=== PATIENT | male | born 1950 | race Caucasian/White ===

== ENCOUNTER 2021-10-24 08:57 | Outpatient (REF) | payer MEDICARE, SELFPAY ==
--- NOTE | ~2021-10-24 | XR_ITS ---
EXAMINATION: BILATERAL HIP CLINICAL INFORMATION: Pain in bilateral hip COMPARISON: None TECHNIQUE: 2 views each hip FINDINGS: Left hip: There is maintained left hip joint space. No bony erosive changes, loose bodies or soft tissue swelling seen. Right hip: The right hip joint space is maintained. No bony erosive changes, loose bodies or soft tissue swelling seen. XR/XR hip RT min 2V IMPRESSION: Unremarkable bilateral hip exam
--- NOTE | ~2021-10-24 | XR_ITS ---
EXAMINATION: BILATERAL HIP CLINICAL INFORMATION: Pain in bilateral hip COMPARISON: None TECHNIQUE: 2 views each hip FINDINGS: Left hip: There is maintained left hip joint space. No bony erosive changes, loose bodies or soft tissue swelling seen. Right hip: The right hip joint space is maintained. No bony erosive changes, loose bodies or soft tissue swelling seen. XR/XR hip LT min 2V IMPRESSION: Unremarkable bilateral hip exam
[2021-10-24 11:20] LABS: MANUAL DIFF FLAG NO
[2021-10-24 11:25] LABS: Basophils Percent Auto 0.4 % (0-2); Eosinophils Absolute Auto 0.2 X10*3/uL (0.0-0.4); Eosinophils Percent Auto 2.4 % (0-4); Hematocrit 46.7 % (42.0-52.0); Hemoglobin 16.1 g/dl (14.0-18.0); Imm Gran Abs Auto 0.03 X10*3/uL (0.00-0.03); Imm Gran Pct Auto 0.4 % (0.0-0.4); Lymphocytes Absolute Auto 1.5 X10*3/uL (1.2-4.9); Lymphocytes Percent Auto 19.2 % (20-40); Mean Corpuscular HGB Conc 34.5 g/dl (31.0-36.0); Mean Corpuscular Hemoglobin 29.4 pg (27.0-33.0); Mean Corpuscular Volume 85.2 fL (80.0-98.0); Mean Platelet Volume 9.7 fL (9.4-12.4); Monocytes Absolute Auto 0.6 X10*3/uL (0.1-1.2); Monocytes Percent Auto 8.2 % (2-11); Neutrophils Absolute Auto 5.2 x10*3/uL (2.0-8.3); Neutrophils Percent Auto 69.4 % (45-73); Platelet Count 207 X10*3/uL (160-400); Red Blood Count 5.48 X10*6/uL (4.60-5.80); Red Cell Distribution Width 12.8 % (11.0-16.0); White Blood Count 7.6 X10*3/uL (4.8-10.8)
[2021-10-24 11:32] LABS: Appearance Urine CLEAR; Color Urine YELLOW; Glucose Urine UA NEG (NEG); Leukocyte Esterase Urine NEG (NEG); Nitrite Urine NEG (NEG); PH 5.5 (5.0-8.0); Specific Gravity - Urine 1.015 (1.005-1.025); Urine Blood NEG (NEG); Urine Ketones NEG (NEG); Urine Protein NEG (NEG-TRACE)
[2021-10-24 11:37] LABS: Estimated Average Glucose 128 mg/dL; Hemoglobin A1c % 6.1 %
[2021-10-24 11:47] LABS: Alanine Aminotransferase 18 U/L (0-40); Albumin Level 4.5 g/dL (3.5-5.0); Alkaline Phosphatase 80 U/L (39-117); Anion Gap 14 (12-20); Aspartate Amino Transferase 17 U/L (5-37); Bilirubin Total 1.3 mg/dL (0.0-1.0); Blood Urea Nitrogen 15 mg/dL (9-16); Calcium 9.7 mg/dL (8.4-10.2); Carbon Dioxide 26 mmol/L (22-29); Chloride 102 mmol/L (96-108); Cholesterol 148 mg/dL; Estimated Glomerular Filt Rate > 60; Glucose Fasting 131 mg/dL (60-99); HDL Cholesterol 35 mg/dL; LDL Cholesterol Calculated 90 mg/dl; Potassium 4.7 mmol/L (3.3-5.1); Sodium 137 mmol/L (135-145); Total Protein 7.2 g/dL (6.5-8.0); Triglycerides 116 mg/dL
[2021-10-24 11:55] LABS: Prostate Specific Antigen Scr 0.62 ng/mL (<0.05-4.0); TSH reflex Free T4 1.71 uIU/mL (0.32-4.0)
[2021-10-24 12:47] LABS: Creatinine Urine 107.41 mg/dL; Microalbum/Creatinine Ratio Ur 33.5 ug/mg cr
== END 2021-10-24 08:58 | disposition home or self-care (01) ==
LOC: HO.HMGCX 08:57
PROVIDERS: PCP Nurse Practitioner Family; Visit Provider Nurse Practitioner Family
DX: I10 Essential (primary) hypertension (principal); E11.9 Type 2 diabetes mellitus without complications; M25.552 Pain in left hip; M25.551 Pain in right hip; Z12.5 Encounter for screening for malignant neoplasm of prostate
CPT/HCPCS: 36415; 73502; 80053; 80061; 81003; 82043; 83036; 84153; 84443; 85025

== ENCOUNTER → 2021-11-07 07:24 | Outpatient (REF) | payer MEDICARE, SELFPAY ==
--- NOTE | 2021-11-07 07:27 | CA_ITS ---
Transthoracic Echocardiogram Patient (Last, First, Middle): Marvel Hilton E Gender: Male Date of : 1950 Age: 70 Procedure Date: 11/07/2021 Procedure Type: Transthoracic Echocardiogram Location: OP Height: 172.72 cm Weight: 90.72 kg BSA: 2.04 m2 Heart Rate: bpm BP: 155 / 72 mmHg Wireless Development Manager: MATHEW Referring MD: Brian Love [facility] Reinspector: Raymon Wall MD Symptoms: R01.1 - Cardiac murmur, unspecified Study Quality: Adequate ECG Rhythm: Sinus Conclusions: - 1. Normal LV systolic function with moderate LVH with impaired relaxation filling pattern 2. At least mildly dilated left atrium 3. Calcific aortic valve changes noted with early aortic stenosis 4. Mild mitral regurgitation 5. Normal RV systolic pressure 6. Mildly dilated ascending aorta at 3.8 cm 7. No pericardial effusion Findings Left Ventricle Normal left ventricular size and systolic function. There is moderately increased left ventricular wall thickness. The visually estimated ejection fraction is between 60-65%. Spectral Doppler is indicative of an impaired relaxation filling pattern. Right Ventricle Normal right ventricular cavity size and systolic function. Atria The left atrium is mildly dilated. There is lipomatous hypertrophy of the interatrial septum. There is no evidence of interatrial shunt. The right atrium is likely dilated. Aortic Valve There is mild calcification of the aortic valve. There is moderate thickening of the aortic valve. The peak aortic gradient is 17 mmHg.The mean gradient is 10 mmHg. The aortic valve area is 2.14 cm2. There is no aortic valve regurgitation. Mitral Valve There is mild anterior and posterior mitral leaflet thickening. There is mild mitral annular calcification. There is mild mitral valve regurgitation. There is no mitral valve stenosis. Pulmonic Valve The pulmonic valve was not well visualized. Tricuspid Valve Likely normal tricuspid valve structure and function. There is trace tricuspid valve regurgitation. The right ventricular systolic pressure is normal. The right ventricular systolic pressure is 28 mmHg. Normal right atrial pressure. There is no evidence of pulmonary hypertension. Great Vessels The pulmonary artery was not well visualized. There is mild dilatation of the ascending aorta measuring 3.80 cm. Venous The inferior vena cava is normal in size and collapses greater than 50% with inspiration. Pericardium/Pleural There is no evidence of pericardial effusion. Prior Study Comparison No prior study available for comparison. Measurements 2D Linear Measurements IVSd: 1.49 0.6-0.9/0.6-1.0 cm LVIDd: 4.46 3.9-5.3/4.2-5.9 cm LVIDd Index: 7.08 2.4-3.2/2.2-3.1 cm/m2 LVIDs: 2.86 2.0-3.6 cm LVPWd: 1.27 0.7-1.1 cm LA Diam: 4.20 2.7-3.8/3.0-4.0 cm LAIDs Index: 6.67 1.5-2.3 cm/m2 LV Mass: 299.16 67-162/88-224 g LV Mass Index: 474.85 43-95/49-115 g/m2 LVOT Diam: 2.20 3.0+(-)1.3 cm 2D Systolic Function EF 4C: 57.30 >55% EF 2C: 64.40 >55% EF BiP: 61.00 >55% Mitral Valve MV Pk E: 0.85 MV PK A: 1.09 MV Decel Time: 268.00 E/A: 0.80 E'Lateral: 8.59 E'Medial: 6.74 E/E' Med: 12.70 E/E' Lat: 9.90 PHT: 78.00 MVA PHT: 2.82 Decel [place]: 3.19 Aortic Valve AoV Pk Kannan: 2.05 AoV Mn Kannan: 1.44 AoV VTI: 0.50 AoV Pk Grad: 17.00 Aov Mn Grad: 10.00 MONICA Cont.VTI: 2.14 LVOT LVOT Pk Kannan: 1.12 LVOT Mn Kannan: 0.73 LVOT VTI: 0.28 LVOT Pk Grad: 5.00 LVOT Mn Grad: 2.00 LVOT Diam: 2.20 LVOT Area: 3.80 Diastolic Function MV Pk E: 0.85 MV Pk A: 1.09 E/A: 0.80 E'Medial: 6.74 E/E' Med: 12.70 E' Laterial: 8.59 E/E' Lat: 9.90 Right Ventricle TAPSE (mm): 22.80 TVS' Kannan: 16.90 Tricuspid Valve TR Pk Kannan: 2.50 TR Pk Grad: 25.00 RA Press: 3.00 RVSP: 28.00 Great Vessels Aorta Sinus of Valsalva: 3.62 2.0-3.[address] [place]: 2.75 1.7-3.4 cm Ao Asc: 3.80 2.1-3.4 cm Updated in Other Vendor System with Status of Final Raymon Wall MD electronically signed on 11/08/2021 3:57:33 PM with status of Final
== END ==
LOC: HO.CARD 07:24
PROVIDERS: PCP Nurse Practitioner Family; Visit Provider Nurse Practitioner Family
DX: R01.1 Cardiac murmur, unspecified (principal)
CPT/HCPCS: 93306

== ENCOUNTER 2022-04-20 07:09 | Outpatient (REF) | payer MEDICARE, SELFPAY ==
[2022-04-20 11:27] LABS: MANUAL DIFF FLAG NO
[2022-04-20 11:29] LABS: Appearance Urine Clear; Color Urine Yellow; Glucose Urine UA Negative (Negative); Leukocyte Esterase Urine Negative (Negative); Nitrite Urine Negative (Negative); PH 7.5 (5.0-9.0); Specific Gravity - Urine <= 1.005 (1.005-1.025); Urine Blood Negative (Negative); Urine Ketones Negative (Negative); Urine Protein Negative (Neg-Trace)
[2022-04-20 11:50] LABS: Basophils Percent Auto 0.6 % (0-2); Eosinophils Absolute Auto 0.2 X10*3/uL (0.0-0.4); Eosinophils Percent Auto 3.6 % (0-4); Hemoglobin 16.7 g/dl (14.0-18.0); Imm Gran Abs Auto 0.02 X10*3/uL (0.00-0.03); Imm Gran Pct Auto 0.3 % (0.0-0.4); Lymphocytes Absolute Auto 1.9 X10*3/uL (1.2-4.9); Lymphocytes Percent Auto 29.3 % (20-40); Mean Corpuscular HGB Conc 34.1 g/dl (31.0-36.0); Mean Corpuscular Hemoglobin 29.2 pg (27.0-33.0); Mean Corpuscular Volume 85.7 fL (80.0-98.0); Mean Platelet Volume 9.5 fL (9.4-12.4); Monocytes Absolute Auto 0.6 X10*3/uL (0.1-1.2); Monocytes Percent Auto 9.6 % (2-11); Neutrophils Absolute Auto 3.6 x10*3/uL (2.0-8.3); Neutrophils Percent Auto 56.6 % (45-73); Platelet Count 202 X10*3/uL (160-400); Red Blood Count 5.72 X10*6/uL (4.60-5.80); Red Cell Distribution Width 13.1 % (11.0-16.0); White Blood Count 6.4 X10*3/uL (4.8-10.8)
[2022-04-20 12:00] LABS: Estimated Average Glucose 137 mg/dL; Hemoglobin A1c % 6.4 %
[2022-04-20 12:19] LABS: Creatinine Urine 14.25 mg/dL; Microalbum/Creatinine Ratio Ur 154.3 ug/mg cr
[2022-04-20 12:19] LABS: Alanine Aminotransferase 24 U/L (0-40); Albumin Level 4.4 g/dL (3.5-5.0); Alkaline Phosphatase 63 U/L (39-117); Anion Gap 16 (12-20); Aspartate Amino Transferase 21 U/L (5-37); Bilirubin Total 1.2 mg/dL (0.0-1.0); Blood Urea Nitrogen 16 mg/dL (9-16); Calcium 9.9 mg/dL (8.4-10.2); Carbon Dioxide 29 mmol/L (22-29); Chloride 101 mmol/L (96-108); Cholesterol 161 mg/dL; Estimated Glomerular Filt Rate > 60; Glucose Fasting 131 mg/dL (60-99); HDL Cholesterol 37 mg/dL; LDL Cholesterol Calculated 98 mg/dl; Potassium 4.7 mmol/L (3.3-5.1); Sodium 141 mmol/L (135-145); Total Protein 7.2 g/dL (6.5-8.0); Triglycerides 132 mg/dL
[2022-04-20 12:21] LABS: TSH reflex Free T4 1.68 uIU/mL (0.32-4.0)
== END 2022-04-20 07:10 | disposition home or self-care (01) ==
LOC: HO.HMGCLDS 07:09
PROVIDERS: PCP Nurse Practitioner Family; Visit Provider Nurse Practitioner Family
DX: E11.9 Type 2 diabetes mellitus without complications (principal)
CPT/HCPCS: 36415; 80053; 80061; 81003; 82043; 83036; 84443; 85025

== ENCOUNTER → 2022-09-06 08:04 | Outpatient (BNVA) | payer MEDICARE, SELFPAY | PROVIDERS: PCP Nurse Practitioner Family; Visit Provider Nurse Practitioner | DX: Z01.818 Encounter for other preprocedural examination (principal); I34.0 Nonrheumatic mitral (valve) insufficiency; I35.0 Nonrheumatic aortic (valve) stenosis; Z80.0 Family history of malignant neoplasm of digestive organs | CPT/HCPCS: 99202 ==

== ENCOUNTER 2022-11-29 08:48 | Outpatient (AMB) | payer MEDICARE, SELFPAY ==
[2022-11-29 09:02] VITALS: BP 142/78; PULSE 73; O2SAT 96; BMI 29.8
--- NOTE | 2022-11-29 09:02 | A.OFFPC_ITS ---
Vital Signs 11/29/22 09:02 Height 5 ft 8 in Weight 196 lb 4 oz BMI 29.8 BP 142/78 H Blood Pressure Location Lt brachial Position Sitting Pulse 73 Pulse Source Pulse Oximeter Pulse Oximetry (%) 96 Oxygen Delivery Method Room Air Intake Visit Reasons: Annual PE/DM Allergies No Known Allergies Allergy (Verified 11/29/22 09:05) Medication List - Last Reconciled 11/29/22 by ALICIA Abel amlodipine-benazepril 10-20 mg 1 cap PO DAILY aspirin (Adult Low Dose Aspirin) 81 mg PO DAILY atorvastatin 40 mg PO DAILY 90 days hydrochlorothiazide 12.5 mg PO DAILY labetalol 300 mg PO BID metformin ER 500 mg PO BID 90 days peg 3350-electrolytes 236-22.74-6.74 -5.86 gram (Golytely) 240 mL PO Q10M 1 day Tobacco use date assessed: 11/29/22 Fall risk assessment: No Falls in past year Last assessed Fall Risk: 11/29/22 Dental Screening Dental Screen Date: 11/29/22 Did you have a dental visit in the last 12 months?: No Did you have a dental problem in the last 6 months where you did not have access to dental care?: No Was dental information given to patient?: Patient has dentist HPI Annual PE/DM HPI Details Pt is here for a PE. Will order labs. Pt is seeing GI for his colon screen. Due for PSA, will order. Denies dribbling with urination, weak stream, and nocturia. No family hx of prostate cancer. Pt is a diabetic, on an CHAITANYA and a statin. A1C in office today is 6.2, microalbumin is up to date. Denies polyuria, polydipsia, and neuropathy. Pt denies any signs and symptoms of hypoglycemia and does know how to correct it. Eye exam is up to date. HTN: Blood pressure is elevated today, managed with amlodipine-benazepril 10-20mg, hydrochlorothiazide 12.5mg, and labetalol 300mg bid. Will increase hydrochlorothiazide from 12.5mg to 25mg. Denies chest pain, shortness of breath, headache, dizziness, and blurred vision. [facility] Medical History Aortic stenosis Mild mitral regurgitation Social History Housing: House Patient Tobacco Use Status: Former Tobacco user Quit Date: quit 25 years ago e-Cigarette/Vaping Use: Never Used Second Hand Smoke Exposure: No service: No Current occupational status: retired Cognitive needs: No Hearing needs: No Vision needs: No Questionnaire Thrive Questionnaire Date Thrive assessed: 07/25/22 MARYA-7 AMB Questionnaire MARYA-7 Date MARYA - 7 assessed: 07/25/22 Source: Developed by Drs. Morgan Anderson, Dedra Zelaya, Winston Aceves and colleagues, with an educational franck from [employer]. Review of Systems Const Denies chills and Denies fever(s) Eyes Denies blurry vision ENT Denies vertigo, Denies dizziness and Denies sore throat Card Denies chest pain at rest, Denies chest pain with activity, Denies diaphoresis, Denies dyspnea and Denies dyspnea on exertion Resp Denies cough, Denies dyspnea, Denies dyspnea on exertion and Denies wheezing GI Denies abdominal pain, Denies melena, Denies hematochezia, Denies constipation, Denies diarrhea and Denies loose stools Denies hematuria Musc Denies numbness and Denies tingling Skin/Breast Denies lesions Neuro Denies vertigo, Denies dizziness, Denies numbness and Denies tingling Psych Denies anxiety, Denies depression, Denies homicidal ideation, Denies suicidal ideation and Denies other (substance abuse) Aller/Immun Denies wheezing Physical exam (Primary Care) Vital Signs: Last Vital Signs Pulse 73 11/29/22 09:02 BP 142/78 H 11/29/22 09:02 Pulse Ox 96 11/29/22 09:02 Oxygen Delivery Method Room Air 11/29/22 09:02 BMI result Body Mass Index 29.8 Tobacco/Smoking Status: Tobacco use Status Tobacco use date assessed 11/29/22 11/29/22 09:07 Patient Tobacco Use Status Former Tobacco user 11/29/22 09:04 e-Cigarette/Vaping Use Never Used 11/29/22 09:04 Thrive Assessment: Date of Thrive Assessment Date Thrive assessed 07/25/22 11/29/22 09:04 Const General: cooperative Nutritional Appearance: well nourished Orientation/consciousness: patient oriented x3 HENMT Head: Yes normal to inspection, Yes normocephalic and Yes atraumatic Ears: TM's normal bilaterally Eyes General: appearance normal, both eyes and all related structures Alignment and Position: alignment normal and position normal Neck Neck: Yes normal visual inspection and Yes no lymphadenopathy Thyroid: Thyroid normal Resp Effort & Inspection: normal respiratory effort Auscultation: clear to auscultation bilaterally Cardio Rate: regular rate Rhythm: regular rhythm Heart sounds: S1 normal heart sound present, S2 normal heart sound present and Murmur heart sound present (aortic region) systolic GI Palpation (GI): Soft to palpation and nontender Auscultation: normal bowel sounds Male General Exam: Yes normal external exam Penis: normal penis Scrotum: scrotum normal, testes descended bilaterally and no inguinal hernias Testes: no testicular mass Skin Rashes: no rashes Neuro General: patient oriented x3, moves all extremities, no focal motor deficits and deep tendon reflexes 2+ bilaterally Romberg Test: Negative Extrem Other: bilat feet: + sensation with use of monofilament, small burn (healing erythema) to plantar aspect right mid foot, healing well, no signs of infection Psych Appearance: grossly normal Mental Status: mental status grossly normal Speech and movement: Normal speech and movement present Affect: normal affect Attitude: cooperative Thought process: Normal thought process present Thought content: Normal thought content present Insight: Good insight present (Psych) Judgement: Good judgement present (Psych) Results AMB Hemoglobin A1c AMB Hemoglobin A1c 6.2 % Last Edit by Jennifer Verma CMA on 11/29/22 09: 23 Results Reviewed Results Reviewed: Laboratory Last Values Hgb A1c (Clinic) 6.2 % (4.0-6.0) H 11/29/22 09:13 Assessment and Plan Assessment & Plan (1) Diabetes: Code(s): E11.9 - Type 2 diabetes mellitus without complications Plan: Labs ordered (2) Screening PSA (prostate specific antigen): Code(s): Z12.5 - Encounter for screening for malignant neoplasm of prostate Plan: PSA ordered (3) Aortic stenosis: Code(s): I35.0 - Nonrheumatic aortic (valve) stenosis Plan: repeat echo for comparison from last year's echo (4) Systolic murmur: Code(s): R01.1 - Cardiac murmur, unspecified Plan: Echo ordered (5) HTN (hypertension): Code(s): I10 - Essential (primary) hypertension Plan: Increasing hctz to 25mg Plan The patient agreed to the use of a medical technologist microbiology for this encounter. Scribed for VERENA Robert- by Kim Mehta medical technologist microbiology, on 11/29/2022 at 09:25 EST. Orders: Orders Comprehensive [place]. Panel Fast Today E11.9 - Type 2 diabetes mellitus without complications Lipid Panel Today E11.9 - Type 2 diabetes mellitus without complications TSH reflex Free T4 Today E11.9 - Type 2 diabetes mellitus without complications Microalbumin, Random (w Creat) Today E11.9 - Type 2 diabetes mellitus without complications Complete Blood Count Auto Diff Today E11.9 - Type 2 diabetes mellitus without complications UA CC w/rflx Micro + Cult Today E11.9 - Type 2 diabetes mellitus without complications Prostate Specific Antigen Scr Today Z12.5 - Encounter for screening for malignant neoplasm of prostate CA echo transthoracic complete Today I35.0 - Nonrheumatic aortic (valve) stenosis AMB Hemoglobin A1c Today E11.9 - Type 2 diabetes mellitus without complications Medications: Changed From hydrochlorothiazide 12.5 mg PO DAILY 90 tabs 1RF To hydrochlorothiazide 25 mg PO DAILY 90 tabs 1RF Coding Level of Care Code Est Pt Prev Care >65y(03327) Diagnoses Diabetes E11.9 Screening PSA (prostate specific antigen) Z12.5 Aortic stenosis I35.0 Systolic murmur R01.1 HTN (hypertension) I10
== END 2022-11-29 09:49 | disposition home or self-care (01) ==
PROVIDERS: Visit Provider Nurse Practitioner Family
DX: Z00.00 Encounter for general adult medical examination without abnormal findings (principal); E11.9 Type 2 diabetes mellitus without complications; I10 Essential (primary) hypertension; I35.0 Nonrheumatic aortic (valve) stenosis; R01.1 Cardiac murmur, unspecified
CPT/HCPCS: 83036; 99397

== ENCOUNTER → 2022-12-27 07:52 | Outpatient (REF) | payer MEDICARE, SELFPAY ==
--- NOTE | 2022-12-27 07:54 | CA_ITS ---
Transthoracic Echocardiogram Patient (Last, First, Middle): Marvel Hilton E Gender: Male Date of : 1950 Age: 72 Procedure Date: 12/27/2022 Procedure Type: Transthoracic Echocardiogram Location: OP Height: 175.26 cm Weight: 88.45 kg BSA: 2.04 m2 Heart Rate: 57 bpm BP: 110 / 70 mmHg Electrical Machinist: NIDA/PEREZ Referring MD: Brian Love [facility] Symptoms: I35.0 - Nonrheumatic aortic (valve) stenosis Study Quality: Adequate ECG Rhythm: Sinus with extra beats Conclusions: - The left ventricular systolic function is normal. The calculated ejection fraction is 57% by biplane method. - The basal inferior and basal inferolateral segments are hypokinetic. - There is mild aortic valve stenosis. - There is mild mitral annular calcification. Findings Left Ventricle Normal left ventricular cavity size. There is mildly increased left ventricular wall thickness. The left ventricular systolic function is normal. The calculated ejection fraction is 57% by biplane method. There is no evidence of regional wall motion abnormalities. Evidence suggests grade I (mild) diastolic dysfunction. Wall Motion Rest Echo Findings The basal inferior and basal inferolateral segments are hypokinetic. Atria Both atria are normal in size. Aortic Valve There is moderate calcification of the aortic valve. There is mild aortic valve stenosis. There is no aortic valve regurgitation. Mitral Valve There is mild mitral annular calcification. There is no mitral valve regurgitation. There is no mitral valve stenosis. Pulmonic Valve The pulmonic valve is likely normal. Tricuspid Valve Normal tricuspid valve structure. There is trace tricuspid valve regurgitation. There is no evidence of pulmonary hypertension. Great Vessels The asc aorta is normal in size. Venous The inferior vena cava is normal in size and collapses greater than 50% with inspiration. Pericardium/Pleural There is no evidence of pericardial effusion. Prior Study Comparison Changes noted compared to prior study dated: 11/07/2021. see comment on wall motion. Measurements 2D Linear Measurements IVSd: 1.30 0.6-0.9/0.6-1.0 cm LVIDd: 4.15 3.9-5.3/4.2-5.9 cm LVIDd Index: 2.03 2.4-3.2/2.2-3.1 cm/m2 LVIDs: 2.98 2.0-3.6 cm LVPWd: 1.21 0.7-1.1 cm LA Diam: 4.40 2.7-3.8/3.0-4.0 cm LAIDs Index: 2.16 1.5-2.3 cm/m2 LV Mass: 232.89 67-162/88-224 g LV Mass Index: 114.16 43-95/49-115 g/m2 LVOT Diam: 2.00 3.0+(-)1.3 cm 2D Systolic Function EF 4C: 57.60 >55% EF 2C: 56.50 >55% EF BiP: 57.30 >55% Mitral Valve MV Pk E: 0.61 MV PK A: 1.14 MV Decel Time: 359.00 E/A: 0.50 E'Lateral: 5.22 E'Medial: 4.03 E/E' Med: 15.10 E/E' Lat: 11.60 PHT: 105.00 MVA PHT: 2.10 Decel Stewart: 1.69 Aortic Valve AoV Pk Kannan: 2.06 AoV Mn Kannan: 1.34 AoV VTI: 0.45 AoV Pk Grad: 17.00 Aov Mn Grad: 9.00 MONICA Cont.VTI: 1.64 LVOT LVOT Pk Kannan: 1.07 LVOT Mn Kannan: 0.71 LVOT VTI: 0.24 LVOT Pk Grad: 5.00 LVOT Mn Grad: 2.00 LVOT Diam: 2.00 LVOT Area: 3.14 Diastolic Function MV Pk E: 0.61 MV Pk A: 1.14 E/A: 0.50 E'Medial: 4.03 E/E' Med: 15.10 E' Laterial: 5.22 E/E' Lat: 11.60 Right Ventricle TAPSE (mm): 25.20 TVS' Kannan: 16.80 Tricuspid Valve TR Pk Kannan: 1.96 TR Pk Grad: 15.00 RA Press: 3.00 RVSP: 18.00 Great Vessels Aorta Sinus of Valsalva: 3.90 2.0-3.5 cm Ao Asc: 3.50 2.1-3.4 cm Pulmonary Valve PV Pk Kannan: 1.09 Peak PV Grad: 5.00 Updated in Other Vendor System with Status of Final Avtar Marquez MD electronically signed on 12/27/2022 11:47:11 AM with status of Final
== END ==
LOC: HO.CARD 07:52
PROVIDERS: PCP Nurse Practitioner Family; Visit Provider Nurse Practitioner Family
DX: I35.0 Nonrheumatic aortic (valve) stenosis (principal)
CPT/HCPCS: 93306

== ENCOUNTER → 2022-12-27 07:54 | Outpatient (BNV) | payer MEDICARE, SELFPAY | PROVIDERS: PCP Nurse Practitioner Family; Visit Provider Internal Medicine | DX: I35.0 Nonrheumatic aortic (valve) stenosis (principal) | CPT/HCPCS: 93306 ==

== ENCOUNTER 2023-01-31 06:27 | Outpatient (REF) | payer MEDICARE, SELFPAY ==
[2023-01-31 11:46] LABS: MANUAL DIFF FLAG NO
[2023-01-31 11:50] LABS: Basophils Absolute Auto 0.1 X10*3/uL (0.0-0.2); Basophils Percent Auto 0.7 % (0-2); Eosinophils Absolute Auto 0.2 X10*3/uL (0.0-0.4); Eosinophils Percent Auto 3.4 % (0-4); Hematocrit 42.7 % (42.0-52.0); Hemoglobin 15.1 g/dl (14.0-18.0); Imm Gran Abs Auto 0.03 X10*3/uL (0.00-0.03); Imm Gran Pct Auto 0.4 % (0.0-0.4); Lymphocytes Absolute Auto 1.8 X10*3/uL (1.2-4.9); Lymphocytes Percent Auto 26.4 % (20-40); Mean Corpuscular HGB Conc 35.4 g/dl (31.0-36.0); Mean Corpuscular Volume 84.7 fL (80.0-98.0); Monocytes Absolute Auto 0.7 X10*3/uL (0.1-1.2); Monocytes Percent Auto 10.1 % (2-11); Platelet Count 237 X10*3/uL (160-400); Red Blood Count 5.04 X10*6/uL (4.60-5.80); Red Cell Distribution Width 12.9 % (11.0-16.0); White Blood Count 6.7 X10*3/uL (4.8-10.8)
[2023-01-31 11:54] LABS: Appearance Urine Clear; Color Urine Yellow; Glucose Urine UA Negative (Negative); Leukocyte Esterase Urine Negative (Negative); Nitrite Urine Negative (Negative); Urine Blood Negative (Negative); Urine Ketones Negative (Negative); Urine Protein Negative (Neg-Trace)
[2023-01-31 12:00] LABS: Estimated Average Glucose 134 mg/dL; Hemoglobin A1c % 6.3 % (<6.0)
[2023-01-31 12:08] LABS: Alanine Aminotransferase 16 U/L (0-40); Albumin Level 4.1 g/dL (3.5-5.0); Alkaline Phosphatase 75 U/L (39-117); Anion Gap 15 (12-20); Aspartate Amino Transferase 18 U/L (5-37); Bilirubin Total 0.9 mg/dL (0.0-1.0); Blood Urea Nitrogen 16 mg/dL (9-16); Calcium 9.9 mg/dL (8.4-10.2); Carbon Dioxide 27 mmol/L (22-29); Chloride 101 mmol/L (96-108); Cholesterol 142 mg/dL (<200); Estimated Glomerular Filt Rate > 60; Glucose Fasting 124 mg/dL (60-99); HDL Cholesterol 30 mg/dL (>40); LDL Cholesterol Calculated 87 mg/dL (<100); Potassium 3.5 mmol/L (3.3-5.1); Sodium 139 mmol/L (135-145); Total Protein 7.2 g/dL (6.5-8.0); Triglycerides 129 mg/dL (<150)
[2023-01-31 12:19] LABS: Creatinine Urine 43.37 mg/dL; Prostate Specific Antigen Scr 1.13 ng/mL (<0.05-4.0)
[2023-01-31 12:25] LABS: TSH reflex Free T4 1.65 uIU/mL (0.32-4.0)
== END 2023-01-31 06:28 | disposition home or self-care (01) ==
LOC: HO.HMGCLDS 06:27
PROVIDERS: PCP Nurse Practitioner Family; Visit Provider Nurse Practitioner Family
DX: E11.9 Type 2 diabetes mellitus without complications (principal); Z12.5 Encounter for screening for malignant neoplasm of prostate
CPT/HCPCS: 36415; 80053; 80061; 81003; 82043; 82570; 83036; 84153; 84443; 85025

== ENCOUNTER 2023-04-04 09:12 | Outpatient (AMB) | payer MEDICARE, SELFPAY ==
--- NOTE | 2023-04-04 09:17 | A.OFFPC_ITS ---
Vital Signs 04/04/23 09:20 Height 5 ft 8 in Weight 201 lb BMI 30.6 BP 132/70 Blood Pressure Location Rt brachial Position Sitting Pulse 55 Pulse Source Pulse Oximeter Pulse Oximetry (%) 97 Oxygen Delivery Method Room Air Intake Visit Reasons: 4 month fu Intake Note: Patient is here today to follow up on diabetes. Allergies No Known Allergies Allergy (Verified 04/04/23 09:21) Tobacco use date assessed: 11/29/22 HPI 4 month fu HPI Details Patient is here for follow-up for diabetes. Denies any polyuria, polydipsia, neuropathy. He is currently on an CHAITANYA and is currently on a statin. He understands the signs and symptoms of hypoglycemia and how to correct it. Eye exam is up-to-date (according to pt). Microalbumin is up today as well. Pt reports checking his sugars intermittently, trending around 120-140. Pt refuses ALL VACCINATIONS. His last A1c was 6.3. [facility] Medical History Aortic stenosis Mild mitral regurgitation Social History Housing: House Patient Tobacco Use Status: Former Tobacco user Quit Date: quit 25 years ago e-Cigarette/Vaping Use: Never Used Second Hand Smoke Exposure: No service: No Current occupational status: retired Cognitive needs: No Hearing needs: No Vision needs: No Questionnaire Thrive Questionnaire Date Thrive assessed: 07/25/22 MARYA-7 AMB Questionnaire MARYA-7 Date MARYA - 7 assessed: 07/25/22 Source: Developed by Drs. Morgan Anderson, Dedra Zelaya, Winston Aceves and colleagues, with an educational franck from [employer]. Physical exam (Primary Care) Tobacco/Smoking Status: Tobacco use Status Tobacco use date assessed 11/29/22 11/29/22 09:07 Patient Tobacco Use Status Former Tobacco user 11/29/22 09:04 e-Cigarette/Vaping Use Never Used 11/29/22 09:04 Thrive Assessment: Date of Thrive Assessment Date Thrive assessed 07/25/22 11/29/22 09:04 Const General: cooperative, healthy appearing, no acute distress and well developed Resp Effort & Inspection: normal respiratory effort Auscultation: clear to auscultation bilaterally Cardio Rate: regular rate Rhythm: regular rhythm Heart sounds: S1 normal heart sound present, S2 normal heart sound present and Murmur heart sound present systolic Extrem Other: feet intact, + sensation with use of monofilament Coding Level of Care Code Est Pt Level 3 (55382)
[2023-04-04 09:20] VITALS: BP 132/70; PULSE 55; O2SAT 97; BMI 30.6
== END 2023-04-04 09:46 | disposition home or self-care (01) ==
PROVIDERS: PCP Nurse Practitioner Family; Visit Provider Nurse Practitioner Family
DX: E11.9 Type 2 diabetes mellitus without complications (principal)
CPT/HCPCS: 99213

== ENCOUNTER 2023-04-15 14:15 | Outpatient (AMB) | payer MEDICARE, SELFPAY ==
[2023-04-15 14:49] VITALS: BP 130/62; PULSE 59; BMI 30.9
--- NOTE | 2023-04-15 14:49 | MHC.OFFVIS ---
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 He denies any history of coronary disease myocardial infarction or cardiomyopathy or in fact any other cardiac issues in the past. Has hypertension, dyslipidemia and remote history of smoking. He states within limits of activity does not have any symptoms like chest pain or shortness of breath. However, he also has some hip issues and hence not able to do too much. [facility] Medical History (Updated 04/15/23 @ 15:36 by Avtar Marquez MD) No vaccination-pt refuse Aortic stenosis Mild mitral regurgitation Family History (Updated 04/15/23 @ 15:03 by Avtar Marquez MD) Father Heart disease Social History Housing: House Patient Tobacco Use Status: Former Tobacco user Quit Date: quit 25 years ago e-Cigarette/Vaping Use: Never Used Second Hand Smoke Exposure: No service: No Current occupational status: retired Cognitive needs: No Hearing needs: No Vision needs: No Review of Systems ENT Reports dizziness Card Denies chest pain, Denies chest pain at rest, Denies chest pain with activity, Denies rapid heart rate, Denies pedal edema, Denies edema, Denies leg edema, Denies lightheadedness, Denies palpitations, Denies dyspnea, Denies dyspnea on exertion and Denies orthopnea Resp Denies cough, Denies dyspnea and Denies dyspnea on exertion GI Denies hematochezia and Denies change in stool character Musc Denies abnormal gait, Reports limited range of motion, Reports muscle cramps, Denies muscle weakness, Denies numbness, Denies radiating pain into limb, Denies stiffness and Denies tingling Neuro Denies abnormal gait, Reports dizziness, Denies numbness and Denies tingling Endo Denies palpitations Physical Exam Vital Signs: Last Vital Signs Pulse 59 04/15/23 14:49 BP 130/62 04/15/23 14:49 BMI result Body Mass Index 30.9 Const General: comfortable and no acute distress Orientation/consciousness: patient oriented x3 HEENT Other: Unremarkable Head: Yes normal to inspection Neck Neck: Yes normal visual inspection Chest Chest palpation & inspection: normal inspection of the chest Resp Auscultation: clear to auscultation bilaterally Cardio Palpation: normal PMI Heart sounds: S1 normal heart sound present, S2 normal heart sound present, no gallops, Murmur heart sound present systolic II/ and at the right sternal border and no rubs GI Palpation (GI): Soft to palpation Back/Spine/Pelvis Other: unremarkable Skin General skin exam: no rashes or lesions noted Neuro General: patient oriented x3 Extrem General: Yes normal to inspection Psych Mental Status: mental status grossly normal Office Procedures EKG Details: EKG with sinus bradycardia, 9/Min; premature supraventricular ectopy; anterolateral T inversions/downsloping ST. LVH versus ischemia. [id number], Complete Assessment & Plan Assessment & Plan (1) Abnormal EKG: Code(s): R94.31 - Abnormal electrocardiogram [ECG] [EKG] (2) Aortic stenosis: Code(s): I35.0 - Nonrheumatic aortic (valve) stenosis (3) HTN (hypertension): Code(s): I10 - Essential (primary) hypertension Plan EKG, as above shows lateral/anterolateral downsloping ST/T inversion. Could be from LVH or from ischemia. Echocardiogram with LVEF of 57%. Basal inferior/inferolateral hypokinesis. Mild aortic stenosis and mild mitral annular calcification. He does have risk factors including hypertension, dyslipidemia and diabetes. We will plan on pharmacological stress perfusion imaging study for further evaluation. He states he may not be able to exercise adequately due to pain. May hold beta-blockers before the test. Follow-up after testing. Orders: Orders NM cardiolite stress test Today R07.2 - Precordial pain CA lexiscan stress w kayli Today I20.9 - Angina pectoris, unspecified Coding Level of Care Code New Pt Level 4 (22294) Diagnoses Abnormal EKG R94.31 Aortic stenosis I35.0 HTN (hypertension) I10 CPT Codes EKG - CPT: 95961-[id number], Complete ([id number])
== END 2023-04-15 15:14 | disposition home or self-care (01) ==
PROVIDERS: PCP Nurse Practitioner Family; Visit Provider Internal Medicine
DX: I35.0 Nonrheumatic aortic (valve) stenosis (principal); I10 Essential (primary) hypertension; I47.10 Supraventricular tachycardia, unspecified; R94.31 Abnormal electrocardiogram [ECG] [EKG]
CPT/HCPCS: 93010; 99204

== ENCOUNTER → 2023-04-15 14:15 | Outpatient (BNVA) | payer MEDICARE, SELFPAY | PROVIDERS: PCP Nurse Practitioner Family; Visit Provider Internal Medicine | DX: R94.31 Abnormal electrocardiogram [ECG] [EKG] (principal); I35.0 Nonrheumatic aortic (valve) stenosis; I10 Essential (primary) hypertension | CPT/HCPCS: 93005; 99202 ==

== ENCOUNTER → 2023-05-28 07:41 | Outpatient (REF) | payer MEDICARE, SELFPAY ==
--- NOTE | ~2023-05-28 | NM_ITS ---
EXERCISE MYOCARDIAL PERFUSION STUDY INDICATION: Coronary disease, assess for ischemia TECHNIQUE: The patient was brought in for an exercise perfusion study on 05/28/2023. Patient performed exercise as per Jose J protocol and was injected 30 mCi of sestamibi once target heart rate was achieved. Images were obtained using the SPECT gamma camera interlaced with the gating device. Images were obtained in supine position. Resting perfusion study was performed on 05/30/2023. Patient was administered 30 mCi of sestamibi intravenously at rest. Images were then obtained in supine position. Images were processed with the software and compared side to side in short axis, horizontal long axis and vertical long axis views. Total DLP 91mGy-cm. FINDINGS: Raw images were reviewed. The stress perfusion study showed diminished tracer uptake in the basal part of inferolateral wall. Some improvement with CT attenuation correction. The gated study shows normal LV systolic function with calculated LVEF of 58%. LV cavity is normal in size. The gated study shows reduced contractility in the basal inferior/inferolateral wall. Resting study shows diminished tracer uptake in the basal part of inferolateral wall. Gating at rest reveals ejection fraction at 62%; basal inferior/inferolateral hypokinesis. The findings are consistent with fixed perfusion defect in the basal part of inferolateral wall.. NM/NM cardiolite stress test IMPRESSION: 1. 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 No clear ischemia. 2. Gated LVEF is 58% during stress and 52% during rest. 3. Transient ischemic dilatation not present. EKG component of the test reported separately.
--- NOTE | 2023-05-28 07:44 | CA_ITS ---
Acquisition Time: 2023-05-28 08:24:06 Total Exercise Time: 00:05:00 Test Indications: I20.9 - Angina pectoris, unspec Medications: Protocol: PRAFUL Max HR: 141 BPM 95% of Pred: 148 BPM Max BP: 202/046 mmHG Max Work Load: 5.9 METS Exercise stress test exercise 5 min of Praful protocol (stage 2 reduced speed due to hip discomfort) achieving 95% MPHR, without anginal symptoms, with isolated PVCs and ventricular cuplet with max BP 202/46,with baseline downsloping in leads 1, 2, 3,aVF and horizontal ST depressions V4-V6 greater than 1 mm. Nuclear images pending. Test reviewed with Dr. Wall . PT upon arrival BP was 170/62 rate 63 bpm SR with occational PVCs and 146/48 rate 68 bpm. SR with occational PVCs . Test restarted due to being started in Lexiscan and he wanted to try exercise first. Referred By: Avtar Marquez Overread By: Bebe Interiano
== END ==
LOC: HO.CARD 07:41
PROVIDERS: Visit Provider Internal Medicine
DX: R07.2 Precordial pain (principal); I20.9 Angina pectoris, unspecified
CPT/HCPCS: 78452; 93017; A9500

== ENCOUNTER → 2023-05-28 07:44 | Outpatient (BNV) | payer MEDICARE, SELFPAY | PROVIDERS: Visit Provider Nurse Practitioner | DX: I20.9 Angina pectoris, unspecified (principal) | CPT/HCPCS: 78452; 93016; 93018 ==

== ENCOUNTER 2023-06-13 08:58 | Outpatient (AMB) | payer MEDICARE, SELFPAY ==
[2023-06-13 09:00] VITALS: BP 138/60; PULSE 54; BMI 30.8
--- NOTE | 2023-06-13 09:00 | MHC.OFFVIS ---
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 Recently seen in consultation regarding abnormal echocardiogram as that showed some wall motion abnormalities. He has history of hypertension, dyslipidemia and remote history of smoking. Overall, he feels fine. He really does not have any chest pain or in fact any clear-cut cardiac symptoms. He has completed a stress test. [facility] Medical History (Updated 04/15/23 @ 15:36 by Avtar Marquez MD) No vaccination-pt refuse Aortic stenosis Mild mitral regurgitation Surgical History (Updated 06/13/23 @ 09:03 by Diana Uribe) Hx of hand surgery Family History Father Heart disease Social History Housing: House Patient Tobacco Use Status: Former Tobacco user Quit Date: quit 25 years ago e-Cigarette/Vaping Use: Never Used Second Hand Smoke Exposure: No service: No Current occupational status: retired Cognitive needs: No Hearing needs: No Vision needs: No Review of Systems Const Denies weakness ENT Denies dizziness Card Denies chest pain, Denies chest pain with activity, Denies syncope, Denies rapid heart rate, Denies pedal edema, Denies edema, Denies leg edema, Denies lightheadedness, Denies palpitations, Denies dyspnea, Denies dyspnea on exertion and Denies orthopnea Resp Denies cough, Denies dyspnea and Denies dyspnea on exertion GI Denies hematochezia and Denies change in stool character Musc Denies abnormal gait, Denies muscle cramps, Denies muscle weakness, Denies numbness, Denies radiating pain into limb and Denies tingling Neuro Denies abnormal gait, Denies dizziness, Denies syncope, Denies numbness, Denies tingling and Denies weakness Endo Denies palpitations Physical Exam Vital Signs: Last Vital Signs Pulse 54 06/13/23 09:00 BP 138/60 06/13/23 09:00 BMI result Body Mass Index 30.8 Const General: comfortable and no acute distress Orientation/consciousness: patient oriented x3 HEENT Other: Unremarkable Head: Yes normal to inspection Neck Neck: Yes normal visual inspection Chest Chest palpation & inspection: normal inspection of the chest Resp Auscultation: clear to auscultation bilaterally Cardio Palpation: normal PMI Heart sounds: S1 normal heart sound present, S2 normal heart sound present, no gallops, no murmurs and no rubs GI Palpation (GI): Soft to palpation Back/Spine/Pelvis Other: unremarkable Skin General skin exam: no rashes or lesions noted Neuro General: patient oriented x3 Extrem General: Yes normal to inspection Psych Mental Status: mental status grossly normal Assessment & Plan Assessment & Plan (1) Abnormal EKG: Code(s): R94.31 - Abnormal electrocardiogram [ECG] [EKG] (2) Aortic stenosis: Code(s): I35.0 - Nonrheumatic aortic (valve) stenosis (3) HTN (hypertension): Code(s): I10 - Essential (primary) hypertension Plan EKG, shows lateral/anterolateral downsloping ST/T inversion. Could be from LVH or from ischemia. Echocardiogram with LVEF of 57%. Basal inferior/inferolateral hypokinesis. Mild aortic stenosis and mild mitral annular calcification. Myocardial perfusion imaging study shows prior infarct in the basal part of inferolateral wall but no clear ischemia. Overall, no clinical cardiac symptoms but abnormal cardiac testing as above. We discussed various options including just optimal medical therapy versus further workup. After long discussion about discussing options including coronary CT/cardiac catheterization, we decided on coronary CTA. That seems to be reasonable approach to determine coronary anatomy especially as he got no other symptoms. Will follow-up after the above. Orders: Orders CT Cardiac Coronary Angio Today I25.10 - Atherosclerotic heart disease of [place] coronary artery without angina pectoris Basic Metabolic Panel Today I25.10 - Atherosclerotic heart disease of [place] coronary artery without angina pectoris Coding Level of Care Code Est Pt Level 4 (44706) Diagnoses Abnormal EKG R94.31 Aortic stenosis I35.0 HTN (hypertension) I10
== END 2023-06-13 09:27 | disposition home or self-care (01) ==
PROVIDERS: PCP Nurse Practitioner Family; Visit Provider Internal Medicine
DX: R94.31 Abnormal electrocardiogram [ECG] [EKG] (principal); I35.0 Nonrheumatic aortic (valve) stenosis; I10 Essential (primary) hypertension
CPT/HCPCS: 99214

== ENCOUNTER → 2023-06-13 08:58 | Outpatient (BNVA) | payer MEDICARE, SELFPAY | PROVIDERS: PCP Nurse Practitioner Family; Visit Provider Internal Medicine | DX: R94.31 Abnormal electrocardiogram [ECG] [EKG] (principal); I35.0 Nonrheumatic aortic (valve) stenosis; I10 Essential (primary) hypertension | CPT/HCPCS: 99212 ==

== ENCOUNTER 2023-07-29 09:43 | Outpatient (AMB) | payer MEDICARE, SELFPAY ==
--- NOTE | 2023-07-29 10:25 | MHC.PC.OV ---
Vital Signs 07/29/23 10:27 07/29/23 10:46 Height 5 ft 8 in Weight 201 lb 4 oz BMI 30.6 BP 140/92 H 128/82 Blood Pressure Location Lt brachial Lt brachial Position Sitting Sitting Pulse 63 Pulse Source Pulse Oximeter Pulse Oximetry (%) 97 Oxygen Delivery Method Room Air Intake Visit Reasons: 4 month fu DM Intake Note: Patient here for diabetes f/u. pt states he has not been checking sugars at home very often. Allergies No Known Allergies Allergy (Verified 07/29/23 10:57) Medication List - Last Reconciled 07/29/23 by ALICIA Abel amlodipine-benazepril 10-20 mg 1 cap PO DAILY aspirin (Adult Low Dose Aspirin) 81 mg PO DAILY atorvastatin 40 mg PO DAILY 90 days hydrochlorothiazide 25 mg PO DAILY labetalol 300 mg PO BID metformin ER 500 mg PO BID 90 days Tobacco use date assessed: 07/29/23 Fall risk assessment: No Falls in past year Last assessed Fall Risk: 07/29/23 Dental Screening Dental Screen Date: 07/29/23 Did you have a dental visit in the last 12 months?: No Did you have a dental problem in the last 6 months where you did not have access to dental care?: No Was dental information given to patient?: Patient has dentist HPI 4 month fu DM HPI Details Pt is a diabetic, on an CHAITANYA and a statin. A1C in office today is 6.5. Microalbumin is up to date. Denies polyuria, polydipsia, and neuropathy. Pt denies any signs and symptoms of hypoglycemia and does know how to correct it. Pt will call to make his own appointment for an eye exam. HTN: Blood pressure is stable, managed with amlodipine-benazepril 10-20mg, hydrochlorothiazide 25mg, and labetalol 300mg bid. Pt follows up with cardiology. He will be going for his colon screen in the near future. pt refused all vacines [facility] Medical History No vaccination-pt refuse Aortic stenosis Mild mitral regurgitation Surgical History Hx of hand surgery Family History Father Heart disease Social History Housing: House Patient Tobacco Use Status: Former Tobacco user Quit Date: quit 25 years ago e-Cigarette/Vaping Use: Never Used Second Hand Smoke Exposure: No service: No Current occupational status: retired Cognitive needs: No Hearing needs: No Vision needs: No Questionnaire Thrive Questionnaire Date Thrive assessed: 07/25/22 AUDIT C Alcohol Use Questionnaire (AUDIT-C) 1. How often do you have a drink containing alcohol?: Never 3. How often do you have six or more drinks on one occasion?: Never Total Score: 0 Score Reviewed/Action Taken: No MARYA-7 AMB Questionnaire MARYA-7 Date MARYA - 7 assessed: 07/25/22 Source: Developed by Drs. Morgan Anderson, Dedra Zelaya, Winston Aceves and colleagues, with an educational franck from [employer]. Review of Systems Const Reports as per HPI Physical exam (Primary Care) Vital Signs: Last Vital Signs Pulse 63 07/29/23 10:27 BP 140/92 H 07/29/23 10:27 Pulse Ox 97 07/29/23 10:27 Oxygen Delivery Method Room Air 07/29/23 10:27 BMI result Body Mass Index 30.6 Tobacco/Smoking Status: Tobacco use Status Tobacco use date assessed 07/29/23 07/29/23 10:30 Patient Tobacco Use Status Former Tobacco user 07/29/23 10:27 e-Cigarette/Vaping Use Never Used 07/29/23 10:27 Thrive Assessment: Date of Thrive Assessment Date Thrive assessed 07/25/22 07/29/23 10:27 Const General: cooperative Orientation/consciousness: patient oriented x3 Resp Effort & Inspection: normal respiratory effort Auscultation: clear to auscultation bilaterally Cardio Rate: regular rate Rhythm: regular rhythm Heart sounds: S1 normal heart sound present, S2 normal heart sound present and Murmur heart sound present systolic Neuro General: patient oriented x3 Extrem Other: bilat feet: + sensation with use of monofilament, feet intact Right lower extremity: no edema Left lower extremity: no edema Psych Appearance: grossly normal Mental Status: mental status grossly normal Speech and movement: Normal speech and movement present Affect: normal affect Attitude: cooperative Thought process: Normal thought process present Thought content: Normal thought content present Insight: Good insight present (Psych) Judgement: Good judgement present (Psych) Results AMB Hemoglobin A1c AMB Hemoglobin A1c 6.5 % Last Edit by LOWELL Irwin on 07/29/23 10:44 Results Reviewed Results Reviewed: Laboratory Last Values Hgb A1c (Clinic) 6.5 % (4.0-6.0) H 07/29/23 10:44 Assessment and Plan Assessment & Plan (1) HTN (hypertension): Code(s): I10 - Essential (primary) hypertension Plan: Stable (2) Diabetes: Code(s): E11.9 - Type 2 diabetes mellitus without complications Plan: Labs ordered Plan The patient agreed to the use of a medical technical writer for this encounter. Scribed for ALICIA Robert by Kim Mehta medical technical writer, on 07/29/2023 at 10:50 EST. Orders: Orders AMB Hemoglobin A1c Today Z13.9 - Encounter for screening, unspecified TSH reflex Free T4 Today E11.9 - Type 2 diabetes mellitus without complications, I10 - Essential (primary) hypertension UA CC w/rflx Micro + Cult Today E11.9 - Type 2 diabetes mellitus without complications, I10 - Essential (primary) hypertension Lipid Panel Today E11.9 - Type 2 diabetes mellitus without complications, I10 - Essential (primary) hypertension Complete Blood Count Auto Diff Today E11.9 - Type 2 diabetes mellitus without complications, I10 - Essential (primary) hypertension Comprehensive [place]. Panel Fast Today E11.9 - Type 2 diabetes mellitus without complications, I10 - Essential (primary) hypertension Coding Level of Care Code Est Pt Level 3 (13944) Diagnoses HTN (hypertension) I10 Diabetes E11.9
[2023-07-29 10:27] VITALS: BP 140/92; PULSE 63; O2SAT 97; BMI 30.6
[2023-07-29 10:46] VITALS: BP 128/82
== END 2023-07-29 10:59 | disposition home or self-care (01) ==
PROVIDERS: PCP Nurse Practitioner Family; Visit Provider Nurse Practitioner Family
DX: I10 Essential (primary) hypertension (principal); E11.9 Type 2 diabetes mellitus without complications
CPT/HCPCS: 83036; 99213

== ENCOUNTER 2023-07-30 06:40 | Outpatient (REF) | payer MEDICARE, SELFPAY ==
[2023-07-30 10:22] LABS: MANUAL DIFF FLAG NO
[2023-07-30 10:40] LABS: Basophils Absolute Auto 0.1 X10*3/uL (0.0-0.2); Basophils Percent Auto 0.7 % (0-2); Eosinophils Absolute Auto 0.2 X10*3/uL (0.0-0.4); Eosinophils Percent Auto 3.4 % (0-4); Hematocrit 46.1 % (42.0-52.0); Hemoglobin 16.1 g/dl (14.0-18.0); Imm Gran Abs Auto 0.04 X10*3/uL (0.00-0.03); Imm Gran Pct Auto 0.6 % (0.0-0.4); Lymphocytes Absolute Auto 1.8 X10*3/uL (1.2-4.9); Lymphocytes Percent Auto 26.7 % (20-40); Mean Corpuscular HGB Conc 34.9 g/dl (31.0-36.0); Mean Corpuscular Hemoglobin 30.3 pg (27.0-33.0); Mean Corpuscular Volume 86.8 fL (80.0-98.0); Mean Platelet Volume 9.7 fL (9.4-12.4); Monocytes Absolute Auto 0.7 X10*3/uL (0.1-1.2); Monocytes Percent Auto 10.8 % (2-11); Neutrophils Absolute Auto 3.9 x10*3/uL (2.0-8.3); Neutrophils Percent Auto 57.8 % (45-73); Platelet Count 183 X10*3/uL (160-400); Red Blood Count 5.31 X10*6/uL (4.60-5.80); Red Cell Distribution Width 13.7 % (11.0-16.0); White Blood Count 6.8 X10*3/uL (4.8-10.8)
[2023-07-30 10:42] LABS: Appearance Urine Clear; Color Urine Yellow; Glucose Urine UA Negative (Negative); Leukocyte Esterase Urine Negative (Negative); Nitrite Urine Negative (Negative); Urine Blood Negative (Negative); Urine Ketones Negative (Negative); Urine Protein Negative (Neg-Trace)
[2023-07-30 11:56] LABS: Alanine Aminotransferase 21 U/L (0-40); Albumin Level 4.2 g/dL (3.5-5.0); Alkaline Phosphatase 55 U/L (39-117); Anion Gap 13 (12-20); Aspartate Amino Transferase 18 U/L (5-37); Bilirubin Total 0.7 mg/dL (0.0-1.0); Blood Urea Nitrogen 16 mg/dL (9-16); Calcium 9.7 mg/dL (8.4-10.2); Carbon Dioxide 29 mmol/L (22-29); Chloride 103 mmol/L (96-108); Cholesterol 133 mg/dL (<200); Estimated Glomerular Filt Rate > 60; Glucose Fasting 134 mg/dL (60-99); HDL Cholesterol 36 mg/dL (>40); LDL Cholesterol Calculated 79 mg/dL (<100); Potassium 3.9 mmol/L (3.3-5.1); Sodium 141 mmol/L (135-145); Triglycerides 91 mg/dL (<150)
[2023-07-30 12:14] LABS: TSH reflex Free T4 1.94 uIU/mL (0.32-4.0)
== END 2023-07-30 06:41 | disposition home or self-care (01) ==
LOC: HO.LAB 06:40
PROVIDERS: PCP Nurse Practitioner Family; Visit Provider Nurse Practitioner Family
DX: I10 Essential (primary) hypertension (principal); E11.9 Type 2 diabetes mellitus without complications
CPT/HCPCS: 36415; 80053; 80061; 81003; 84443; 85025

== ENCOUNTER 2023-09-04 06:28 | Outpatient (REF) | payer MEDICARE, SELFPAY ==
[2023-09-04 10:42] LABS: MANUAL DIFF FLAG NO
[2023-09-04 10:49] LABS: Basophils Percent Auto 0.5 % (0-2); Eosinophils Absolute Auto 0.2 X10*3/uL (0.0-0.4); Hematocrit 45.8 % (42.0-52.0); Hemoglobin 15.8 g/dl (14.0-18.0); Imm Gran Abs Auto 0.04 X10*3/uL (0.00-0.03); Imm Gran Pct Auto 0.5 % (0.0-0.4); Lymphocytes Absolute Auto 2.1 X10*3/uL (1.2-4.9); Lymphocytes Percent Auto 26.9 % (20-40); Mean Corpuscular HGB Conc 34.5 g/dl (31.0-36.0); Mean Corpuscular Hemoglobin 29.8 pg (27.0-33.0); Mean Corpuscular Volume 86.4 fL (80.0-98.0); Mean Platelet Volume 9.8 fL (9.4-12.4); Monocytes Absolute Auto 0.8 X10*3/uL (0.1-1.2); Monocytes Percent Auto 10.2 % (2-11); Neutrophils Absolute Auto 4.5 x10*3/uL (2.0-8.3); Neutrophils Percent Auto 58.9 % (45-73); Platelet Count 217 X10*3/uL (160-400); Red Cell Distribution Width 13.4 % (11.0-16.0); White Blood Count 7.6 X10*3/uL (4.8-10.8)
[2023-09-04 10:54] LABS: Prothrombin Time 11.6 SEC (11.1-13.3)
[2023-09-04 11:19] LABS: Anion Gap 12 (12-20); Blood Urea Nitrogen 14 mg/dL (9-16); Calcium 9.7 mg/dL (8.4-10.2); Carbon Dioxide 28 mmol/L (22-29); Chloride 104 mmol/L (96-108); Estimated Glomerular Filt Rate > 60; Glucose Random 113 mg/dL (60-115); Potassium 3.8 mmol/L (3.3-5.1); Sodium 140 mmol/L (135-145)
== END 2023-09-04 06:29 | disposition home or self-care (01) ==
LOC: HO.HMGCLDS 06:28
PROVIDERS: PCP Nurse Practitioner Family; Visit Provider Internal Medicine
DX: I10 Essential (primary) hypertension (principal); E11.9 Type 2 diabetes mellitus without complications; I25.10 Atherosclerotic heart disease of native coronary artery without angina pectoris; R93.1 Abnormal findings on diagnostic imaging of heart and coronary circulation; R94.31 Abnormal electrocardiogram [ECG] [EKG]
CPT/HCPCS: 36415; 80048; 85025; 85610

== ENCOUNTER → 2023-09-12 23:59 | Outpatient (BNV) | payer MEDICARE, SELFPAY | PROVIDERS: PCP Nurse Practitioner Family; Visit Provider Internal Medicine Cardiovascular Disease | DX: R93.1 Abnormal findings on diagnostic imaging of heart and coronary circulation (principal); I35.0 Nonrheumatic aortic (valve) stenosis | CPT/HCPCS: 93458; 99152 ==

== ENCOUNTER 2023-11-04 07:59 | Outpatient (AMB) | payer MEDICARE, SELFPAY ==
[2023-11-04 08:21] VITALS: BP 140/68; PULSE 74; BMI 29.8
--- NOTE | 2023-11-04 08:21 | MHC.OFFVIS ---
Vital Signs 11/04/23 08:21 Height 5 ft 8 in Weight 196 lb 3.382 oz BMI 29.8 BP 140/68 H Blood Pressure Location Lt brachial Position Sitting Pulse 74 Pulse Source Pulse Oximeter Intake Visit Reasons: overdue fu cardiac cath Allergies No Known Allergies Allergy (Verified 07/29/23 10:57) Medication List - Last Reconciled 11/04/23 by Avtar Marquez MD amlodipine-benazepril 10-20 mg 1 cap PO DAILY aspirin (Adult Low Dose Aspirin) 81 mg PO DAILY atorvastatin 40 mg PO DAILY 90 days hydrochlorothiazide 25 mg PO DAILY labetalol 300 mg PO BID metformin ER 500 mg PO BID 90 days HPI Comments Details: Marvel returns for follow-up. Originally seen in consultation regarding abnormal echocardiogram as that showed some wall motion abnormalities. He has history of hypertension, dyslipidemia and remote history of smoking. He underwent a comprehensive workup including diagnostic catheterization. Overall, he states he feels fine. No cardiac symptoms. [facility] Medical History No vaccination-pt refuse Aortic stenosis Mild mitral regurgitation Surgical History Hx of hand surgery Family History Father Heart disease Social History Housing: House Patient Tobacco Use Status: Former Tobacco user e-Cigarette/Vaping Use: Never Used Second Hand Smoke Exposure: No service: No Current occupational status: retired Cognitive needs: No Hearing needs: No Vision needs: No Review of Systems Const Denies weakness ENT Denies dizziness Card Denies chest pain, Denies chest pain with activity, Denies syncope, Denies rapid heart rate, Denies pedal edema, Denies edema, Denies leg edema, Denies lightheadedness, Denies palpitations, Denies dyspnea, Denies dyspnea on exertion and Denies orthopnea Resp Denies cough, Denies dyspnea and Denies dyspnea on exertion GI Denies hematochezia and Denies change in stool character Musc Denies abnormal gait, Denies muscle cramps, Denies muscle weakness, Denies numbness, Denies radiating pain into limb and Denies tingling Neuro Denies abnormal gait, Denies dizziness, Denies syncope, Denies numbness, Denies tingling and Denies weakness Endo Denies palpitations Physical Exam Vital Signs: Last Vital Signs Pulse 74 11/04/23 08:21 BP 140/68 H 11/04/23 08:21 BMI result Body Mass Index 29.8 Const General: comfortable and no acute distress Orientation/consciousness: patient oriented x3 HEENT Other: Unremarkable Head: Yes normal to inspection Neck Neck: Yes normal visual inspection Chest Chest palpation & inspection: normal inspection of the chest Resp Auscultation: clear to auscultation bilaterally Cardio Palpation: normal PMI Heart sounds: S1 normal heart sound present, S2 normal heart sound present, no gallops, Murmur heart sound present systolic II/ and at the right sternal border and no rubs GI Palpation (GI): Soft to palpation Back/Spine/Pelvis Other: unremarkable Skin General skin exam: no rashes or lesions noted Neuro General: patient oriented x3 Extrem General: Yes normal to inspection Psych Mental Status: mental status grossly normal Assessment & Plan Assessment & Plan (1) Atherosclerotic coronary vascular disease: Code(s): I25.10 - Atherosclerotic heart disease of [place] coronary artery without angina pectoris Category: Medical (2) Abnormal EKG: Code(s): R94.31 - Abnormal electrocardiogram [ECG] [EKG] Category: Medical (3) Aortic stenosis: Code(s): I35.0 - Nonrheumatic aortic (valve) stenosis Category: Medical (4) HTN (hypertension): Code(s): I10 - Essential (primary) hypertension Category: Medical Plan Cardiac studies reviewed. EKG shows lateral/anterolateral downsloping ST/T inversion. Could be from LVH or from ischemia. Echocardiogram with LVEF of 57%. Basal inferior/inferolateral hypokinesis. Mild aortic stenosis and mild mitral annular calcification. Myocardial perfusion imaging study shows prior infarct in the basal part of inferolateral wall but no clear ischemia. Coronary calcium score 1704. Distributed among left main, lad, circumflex and right coronary artery. Cardiac catheterization with normal coronary arteries. Overall, he has got evidence of coronary atherosclerosis but no obstructive findings on catheterization. Aggressive risk factor modification. Long-term aspirin. Blood pressure management. Today's blood pressure is borderline high but he states home blood pressures are only the 120s and 130s. With regard to lipids, LDL is 79 mg/dL. We could go up on the statin dose. Findings and plan discussed with patient in detail and he understands and agrees. Medications: New atorvastatin 80 mg PO QPM 90 tabs 3RF Discontinued atorvastatin Discontinued Reason: Doctor's Order 40 mg PO DAILY 90 days 90 tabs 1RF Coding Level of Care Code Est Pt Level 4 (30483) Diagnoses Atherosclerotic coronary vascular disease I25.10 Abnormal EKG R94.31 Aortic stenosis I35.0 HTN (hypertension) I10
== END 2023-11-04 08:42 | disposition home or self-care (01) ==
PROVIDERS: PCP Nurse Practitioner Family; Visit Provider Internal Medicine
DX: I25.10 Atherosclerotic heart disease of native coronary artery without angina pectoris (principal); R94.31 Abnormal electrocardiogram [ECG] [EKG]; I35.0 Nonrheumatic aortic (valve) stenosis; I10 Essential (primary) hypertension
CPT/HCPCS: 99214

== ENCOUNTER → 2023-11-04 07:59 | Outpatient (BNVA) | payer MEDICARE, SELFPAY | PROVIDERS: PCP Nurse Practitioner Family; Visit Provider Internal Medicine | DX: I25.10 Atherosclerotic heart disease of native coronary artery without angina pectoris (principal); I35.0 Nonrheumatic aortic (valve) stenosis; I10 Essential (primary) hypertension; R94.31 Abnormal electrocardiogram [ECG] [EKG] | CPT/HCPCS: 99212 ==

== ENCOUNTER 2024-06-11 15:19 | Outpatient (AMB) | payer MEDICARE, SELFPAY ==
--- NOTE | 2024-06-11 15:22 | A.OFFPC_ITS ---
Vital Signs 06/11/24 15:23 Height 5 ft 8 in Weight 203 lb 6 oz BMI 30.9 BP 156/86 H Blood Pressure Location Lt brachial Position Sitting Respiration 17 Pulse 63 Pulse Source Pulse Oximeter Pulse Oximetry (%) 98 Oxygen Delivery Method Room Air Intake Visit Reasons: Annual PE Intake Note: Pt is here today for his annual physical Allergies No Known Allergies Allergy (Verified 06/11/24 17:01) Medication List - Last Reconciled 06/11/24 by Brian Love, [facility] amlodipine-benazepril 10-20 mg 1 cap PO DAILY aspirin (Adult Low Dose Aspirin) 81 mg PO DAILY atorvastatin 40 mg PO QPM hydrochlorothiazide 25 mg PO DAILY labetalol 300 mg PO BID metformin ER 750 mg PO BID 90 days Tobacco use date assessed: 06/11/24 Fall risk assessment: No Falls in past year Last assessed Fall Risk: 06/11/24 Dental Screening Dental Screen Date: 06/11/24 Did you have a dental visit in the last 12 months?: Yes Did you have a dental problem in the last 6 months where you did not have access to dental care?: No Was dental information given to patient?: Patient has dentist HPI Annual PE HPI Details History of Present Illness The patient is a 73-year-old male presenting for a physical examination with known Type 2 Diabetes Mellitus and Essential Hypertension. He has been managing his diabetes with metformin and demonstrated an HbA1c of 7.2%. His home- monitored blood pressure readings align with essential hypertension. He is no longer seeking cardiology follow-up for aortic stenosis but requires a follow-up echocardiogram. The patient does not report chest pain, shortness of breath, or neuropathy-related symptoms. He describes bilateral hip pain, chiefly affecting the anterior and lateral regions, confirmed by a positive RACHEL test on the left side, while other mobility tests were unremarkable. seen gastro in the past, ? why colon screen was not done, will check into this. He may need clearance from cardiology. BPs at home; systolically in 120s to 130s, diastolically in the 70s to 80s. Health Maintenance - Echocardiogram scheduled for the asses sment of aortic stenosis. - Increase in metformin dosage to 750 mg extended-release twice a day due to HbA1c of 7.2%. - Review need for a colonoscopy. - Blood pressure monitoring continued as per home readings. Social History Review of Systems - Musculoskeletal: Reports bilateral hip pain. - Cardiovascular: Denies chest pain, ang kishan, and shortness of breath. - Gastrointestinal: Denies constipation and diarrhea. - Neurological: Denies numbness and ting ling in the feet. - Genitourinary: Denies any urinary symp toms. Physical Exam General: Cooperative, healthy appearing, comfortable, no acute distress and well developed Orientation: Patient oriented x3 Limitations: No limitations Head: Normal to inspection Ears: Hearing grossly normal bilaterally Nose: Normal external nose present Face and sinus: Normal facial exam Eyes: Appearance normal, both eyes and all related structures Neck: Normal visual inspection and Yes full ROM Respiratory: Normal respiratory effort and able to speak in complete sentences. Clear to auscultation bilaterally Cardiovascular: Regular rate and rhythm. Normal S1 and S2 with systolic murmur GI: Normal to inspection. Soft to palpation and nontender Skin: No rashes or lesions noted Neuro: Patient oriented x3 Extremities: Normal to inspection. Bilateral hip pain mostly to the anterior or lateral aspect, positive Rachel's test on the left side, otherwise straight leg raises and knee to chest raises were without difficulty or pain Results - HbA1c: 7.2% Plan 1. 2% to enhance diabetes management. To evaluate aortic stenosis, I have scheduled an echocardiogram, acknowledging the patient's decision not to pursue regular cardiology follow-up. The need for a colonoscopy has been identified as a critical preventive measure, requiring follow-up. Given the bilateral hip pain primarily to the anterior or lateral aspect, further assessment will be with use of XR. Discussion Notes I discussed with the patient the importance of adjusting his metformin dosage to improve glycemic control given the current HbA1c levels. The plan includes repeating an echocardiogram to reassess aortic stenosis, considering the patient?s decision to forgo regular cardiology visits. I recommended evaluating the need for a colonoscopy due to its absence from the patient?s records. I also advised on the potential need for further assessment of bilateral hip pain should the symptoms escalate. Patient Instructions - Increase metformin dosage to 750 mg ex tended-release twice daily. - Schedule an echocardiogram to assess t he heart condition further. - Monitor blood glucose levels and maint ain a log for review in the next visit. - Discuss scheduling a colonoscopy as pa rt of preventative care. - Continue monitoring blood pressure at home and report any significant changes. - Seek medical attention if hip pain wor sens or if new symptoms arise. [facility] Medical History No vaccination-pt refuse Aortic stenosis Mild mitral regurgitation Surgical History Hx of hand surgery Family History Father Heart disease Social History Housing: House Patient Tobacco Use Status: Former Tobacco user e-Cigarette/Vaping Use: Never Used Second Hand Smoke Exposure: No service: No Current occupational status: retired Cognitive needs: No Hearing needs: No Vision needs: No Questionnaire PHQ-9 Over the last 2 weeks, how often have you been bothered by any of the following problems? 1. Little interest or pleasure in doing things: not at all 2. Feeling down, depressed, or hopeless: not at all 3. Trouble falling or staying asleep, or sleeping too much: not at all 4. Feeling tired or having little energy: not at all 5. Poor appetite or overeating: not at all 6. Feeling bad about yourself - or that you are a failure or have let yourself or your family down: not at all 7. Trouble concentrating on things, such as reading the newspaper or watching television: not at all 8. Moving or speaking so slowly that other people could have noticed. Or the opposite - being so fidgety or restless that you have been moving around a lot more than usual: not at all 9. Thoughts that you would be better off or of hurting yourself in some way: not at all Total score: 0 Depression Screening Interpretation: Negative Depression Screening Done: Yes 08692 - PHQ-9 Billing: Yes Source: Developed by Drs. Morgan Anderson, Dedra Zelaya, Winston Aceves and colleagues, with an educational franck from [employer]. Thrive Questionnaire Date Thrive assessed: 06/11/24 I am a: Patient What is your living situation today?: I have a steady place to live Within the past 12 months, did the food you bought not last and you didn't have the money to get more?: Never true Within the past 12 months, did you worry whether your food would run out before you got money to buy more?: Never true Do you have trouble paying for medicines?: No Do you have trouble getting transportation to medical appointments?: No Do you have trouble paying your heating and electricity bill?: No Do you have trouble taking care of your child, family member or friend?: No Do you have trouble with day-to-day activities such as bathing, preparing meals, shopping, managing finances, etc.?: No Are you currently unemployed and looking for a job?: No Are you interested in more education?: No Please select the resources that you would like help with: Utilities Currently or been in a relationship where the following occur: No concerns reported THRIVE Score: 0 AUDIT C Alcohol Use Questionnaire (AUDIT-C) 1. How often do you have a drink containing alcohol?: Never 3. How often do you have six or more drinks on one occasion?: Never Total Score: 0 Score Reviewed/Action Taken: Yes MARYA-7 AMB Questionnaire MARYA-7 Date MARYA - 7 assessed: 06/11/24 Feeling nervous, anxious, or on edge: 0 = Not at all Not being able to stop or control worryin = Not at all Worrying too much about different things: 0 = Not at all Trouble relaxin = Not at all Being so restless that it is hard to sit still: 0 = Not at all Becoming easily annoyed or irritable: 0 = Not at all Feeling afraid as if something awful might happen: 0 = Not at all Total MARYA-7 score (0-4 normal; 5-9 mild; 10-14 moderate; 15-21 severe): 0 Source: Developed by Drs. Morgan Anderson, Dedra Zelaya, Winston Aceves and colleagues, with an educational fracnk from [employer]. MARYA-7 Assessment Billing MARYA-7 Assessment Tool: MARYA-7 Assessment 74071 Physical exam (Primary Care) Vital Signs: Last Vital Signs Pulse 63 06/11/24 15:23 Resp 17 06/11/24 15:23 BP 156/86 H 06/11/24 15:23 Pulse Ox 98 06/11/24 15:23 Oxygen Delivery Method Room Air 06/11/24 15:23 BMI result Body Mass Index 30.9 Tobacco/Smoking Status: Tobacco use Status Tobacco use date assessed 06/11/24 06/11/24 15:25 Patient Tobacco Use Status Former Tobacco user 06/11/24 15:25 e-Cigarette/Vaping Use Never Used 06/11/24 15:25 PHQ-9: PHQ-9 Score PHQ-9: Total score 0 06/11/24 15:57 Depression Screening Interpretation: Negative Thrive Assessment: Date of Thrive Assessment Date Thrive assessed 06/11/24 06/11/24 15:25 Currently or been in a relationship where the following occur: No concerns reported Results AMB Hemoglobin A1c AMB Hemoglobin A1c 7.2 % Last Edit by Chris Lewis CMA on 06/11/24 16: 01 Results Reviewed Results Reviewed: Laboratory Last Values Hgb A1c (Clinic) 7.2 % (4.0-6.0) H 06/11/24 16:01 Coding Level of Care Code Est Pt Prev Care >65y(71212) Diagnoses Aortic stenosis I35.0 Encounter for routine adult physical exam with abnormal findings Z00. Diabetes E11.9 Screening PSA (prostate specific antigen) Z12.5 Bilateral hip pain M25.551; M25.552 Additional Codes MARYA-7 Assessment Billing - MARYA-7 Assessment Tool: MARYA-7 Assessment [id number] ([id number]) PHQ-9 - 95028 - PHQ-9 Billing: Yes ([id number]) Assessment & Plan Assessment & Plan (1) Aortic stenosis: Code(s): I35.0 - Nonrheumatic aortic (valve) stenosis Category: Medical (2) Encounter for routine adult physical exam with abnormal findings: Code(s): Z00.01 - Encounter for general adult medical examination with abnormal findings Category: Medical (3) Diabetes: Code(s): E11.9 - Type 2 diabetes mellitus without complications Category: Medical (4) Screening PSA (prostate specific antigen): Code(s): Z12.5 - Encounter for screening for malignant neoplasm of prostate Category: Medical (5) Bilateral hip pain: Code(s): M25.551 - Pain in right hip; M25.552 - Pain in left hip Category: Medical Plan . Orders: Orders Comprehensive [place]. Panel Fast Today Z00.01 - Encounter for general adult medical examination with abnormal findings TSH reflex Free T4 Today Z00.01 - Encounter for general adult medical examination with abnormal findings UA CC w/rflx Micro + Cult Today Z00.01 - Encounter for general adult medical examination with abnormal findings Lipid Panel Today Z00.01 - Encounter for general adult medical examination with abnormal findings Prostate Specific Antigen Scr Today Z12.5 - Encounter for screening for malignant neoplasm of prostate XR hips ERIN min 3V Today M25.551 - Pain in right hip, M25.552 - Pain in left hip AMB Hemoglobin A1c Today Z13.9 - Encounter for screening, unspecified CA echo transthoracic complete Today I35.0 - Nonrheumatic aortic (valve) stenosis Complete Blood Count Auto Diff Today Z00.01 - Encounter for general adult medical examination with abnormal findings Microalbumin, Random (w Creat) Today E11.9 - Type 2 diabetes mellitus without complications Medications: Changed From metformin ER 500 mg PO BID 90 days 180 tabs 1RF To metformin ER 750 mg PO BID 90 days 180 tabs 1RF
[2024-06-11 15:23] VITALS: BP 156/86; PULSE 63; RESP 17; O2SAT 98; BMI 30.9
--- OUTSIDE RECORDS SUMMARY | 2024-06-11 18:48 | XMS_ITS ---
Author Name [facility] Organization Unknown History of Medication Use Medication Directions Dispensed Refills Start Date End Date Stat iohexol (OMNIPAQUE) 350 mg/mL injection 1 mL 1 mL, Intravenous, Once in imaging, contrast, Starting on Sat08/05/23 at 0913, For 1 dose, Radiology Appointment 08/05/2023 08/05/2023 completed Problems Problem Status Onset Date Problem Type Date of Resolution Source Atherosclerosis of coronary artery of [place] heart without angina pectoris, unspecified vessel or lesion type active EncounterDiagnosisAct CCT
--- OUTSIDE RECORDS SUMMARY | 2024-06-11 18:48 | XMS_ITS | Encounter Summary ---
Author Organization [facility] Address [address] [place] [address] Care Team Providers Care Cable Inspector Name Role Phone Unknown Primary Care Provider [phone] Encounter Details Date Type Department Care Team (Late st Contact Info) Description 07/31/2023 Scanned Document [address] [place] [phone] Radiology, Scan Social History Tobacco Use Types Packs/Day Years Used Date Smoking Tobacco: Never Assessed Sex and Gender Information Value Date Recorded Sex Assigned at Male 07/03/2023 4:16 PM EDT Gender Identity Male 07/03/2023 4:16 PM EDT Sexual Orientation Heterosexual (straight) 07/02 4:16 PM EDT documented as of this encounter Plan of Treatment Not on file documented as of this encounter Procedures Procedure Name Priority Date/Time Associated Diagnosis Comments LAB RESULT 07/31/2023 documented in this encounter Results * LAB RESULT (07/31/2023) Scan Radiology HX AMB PROCEDURES documented in this encounter Visit Diagnoses Not on filedocumented in this encounter Care Teams Cable Inspector Relationship Specialty Start Date End Date Unknown Unknow Provider Address PCP - General 07/03/23 documented as of this encounter
--- OUTSIDE RECORDS SUMMARY | 2024-06-11 18:48 | XMS_ITS | Clinical Summary ---
Author Organization [facility] Address [address] [place] [address] Care Team Providers Care Artificial Leather Calender Operator Name Role Phone Unknown Primary Care Provider [phone] Allergies No known active allergies Social History Tobacco Use Types Packs/Day Years Used Date Smoking Tobacco: Never Assessed Sex and Gender Information Value Date Recorded Sex Assigned at Male 07/03/2023 4:16 PM EDT Gender Identity Male 07/03/2023 4:16 PM EDT Sexual Orientation Heterosexual (straight) 07/02 4:16 PM EDT Last Filed Vital Signs Vital Sign Reading Time Taken Comments Blood Pressure 174/81 08/05/2023 7:00 AM EDT Pulse 60 08/05/2023 7:00 AM EDT Temperature - - Respiratory Rate 16 08/05/2023 7:00 AM EDT Oxygen Saturation 97% 08/05/2023 7:00 AM EDT Inhaled Oxygen Concentration - - Weight - - Height - - Body Mass Index - - Plan of Treatment Health Maintenance Due Date Last Done Comments Hepatitis C Virus Screening 1950 DTaP/Tdap/Td Vaccines (1 - Tdap) 1969 Pneumococcal Vaccines 50+ (1 of 2 - PCV) 1969 Colonoscopy 12/19/1995 Zoster (Shingles) Vaccine (1 of 2) 2000 RSV Vaccine 60 years and old er and Patients (1 - Risk 60-74 years 1-dose series) 2010 Influenza Vaccine 11/07/2023 COVID-19 Vaccine ( - 2023-2 5 season) 2023 Hepatitis B Vaccines Aged Out No long er eligible based on patient's age to complete this topic Care Teams Artificial Leather Calender Operator Relationship Specialty Start Date End Date Unknown Unknow Provider Address PCP - General 07/03/23
== END 2024-06-11 17:41 | disposition home or self-care (01) ==
PROVIDERS: PCP Nurse Practitioner Family; Visit Provider Nurse Practitioner Family
DX: I35.0 Nonrheumatic aortic (valve) stenosis (principal); Z00.01 Encounter for general adult medical examination with abnormal findings; E11.9 Type 2 diabetes mellitus without complications; Z12.5 Encounter for screening for malignant neoplasm of prostate; M25.551 Pain in right hip; M25.552 Pain in left hip; Z13.9 Encounter for screening, unspecified

== ENCOUNTER → 2024-06-11 15:19 | Outpatient (BNVA) | payer MEDICARE, SELFPAY | PROVIDERS: PCP Nurse Practitioner Family; Visit Provider Nurse Practitioner Family | DX: Z00.01 Encounter for general adult medical examination with abnormal findings (principal); E11.9 Type 2 diabetes mellitus without complications; M25.551 Pain in right hip; M25.552 Pain in left hip; I35.0 Nonrheumatic aortic (valve) stenosis | CPT/HCPCS: 83036; 96127; 99397 ==

== ENCOUNTER → 2024-07-01 07:47 | Outpatient (REF) | payer MEDICARE, SELFPAY ==
--- OUTSIDE RECORDS SUMMARY | 2024-07-01 07:51 | XMS_ITS | Encounter Summary ---
Author Organization [facility] Address [address] [place] [address] Care Team Providers Care Manager Mechanical Maintenance Name Role Phone Unknown Primary Care Provider [phone] Encounter Details Date Type Department Care Team (Late st Contact Info) Description 07/31/2023 Scanned Document [address] [place] [phone] Radiology, Scan Social History Tobacco Use [...] on filedocumented in this encounter Care Teams Manager Mechanical Maintenance Relationship Specialty Start Date End Date Unknown Unknow Provider Address PCP - General 07/03/23 documented as of this encounter
--- OUTSIDE RECORDS SUMMARY | 2024-07-01 07:51 | XMS_ITS | Clinical Summary ---
Author Organization [facility] Address [address] [place] [address] Care Team Providers Care Cant Hooker Name Role Phone Unknown Primary Care Provider [phone] Allergies No known active allergies Social History [...] age to complete this topic Care Teams Cant Hooker Relationship Specialty Start Date End Date Unknown Unknow Provider Address PCP - General 07/03/23
--- NOTE | 2024-07-01 07:58 | CA_ITS ---
Transthoracic Echocardiogram Patient (Last, First, Middle): Marvel Hilton E Gender: Male Date of : 1950 Age: 73 Procedure Date: 07/01/2024 Procedure Type: Transthoracic Echocardiogram Location: OP Height: 172. cm Weight: 88.45 kg BSA: 2.02 m2 Heart Rate: 59 bpm BP: 170 / 80 mmHg [employer] Laboratory Director: NIDA Referring MD: Brian Love [facility] Shoe Stainer: Raymon Wall MD Symptoms: I35.0 - Nonrheumatic aortic (valve) stenosis Study Quality: Adequate ECG Rhythm: Arrhythmia Conclusions: - 1. Normal LV ejection fraction of 60-65% with impaired relaxation filling pattern 2. Mild aortic stenosis 3. Normal RV systolic pressure 4. No gross pericardial effusion Findings Left Ventricle Normal left ventricular size, thickness, and systolic function. The visually estimated ejection fraction is between 60-65%. Spectral Doppler is indicative of an impaired relaxation filling pattern. E/E prime ratio is between 8 and 15 consistent with indeterminate filling pressures. possible hypokinesis of the basal inferior and inferolateral wall Right Ventricle Normal right ventricular cavity size and systolic function. Atria The left atrium is likely dilated. There is lipomatous hypertrophy of the interatrial septum. There is no evidence of interatrial shunt. The right atrium is normal in size. Aortic Valve There is mild calcification of the aortic valve. There is moderate thickening of the aortic valve. There is mild aortic valve stenosis. The peak aortic gradient is 19 mmHg.The mean gradient is 10 mmHg. The aortic valve area is 2.20 cm2. There is no aortic valve regurgitation. Mitral Valve There is mild anterior and posterior mitral leaflet thickening. There is mild posterior mitral annular calcification. There is trace mitral valve regurgitation. There is no mitral valve stenosis. Pulmonic Valve The pulmonic valve was not well visualized. Tricuspid Valve Likely normal tricuspid valve structure and function. There is trace tricuspid valve regurgitation. The right ventricular systolic pressure is normal. The right ventricular systolic pressure is 17 mmHg. Normal right atrial pressure. Great Vessels The pulmonary artery was not well visualized. There is no dilatation of the ascending aorta measuring 3.20 cm. Venous The inferior vena cava is normal in size and collapses greater than 50% with inspiration. Pericardium/Pleural There is no evidence of pericardial effusion. Prior Study Comparison No significant change compared to prior study dated: 12/27/2022. Measurements 2D Linear Measurements IVSd: 1.11 0.6-0.9/0.6-1.0 cm LVIDd: 3.90 3.9-5.3/4.2-5.9 cm LVIDd Index: 1.93 2.4-3.2/2.2-3.1 cm/m2 LVIDs: 2.74 2.0-3.6 cm LVPWd: 1.07 0.7-1.1 cm LA Diam: 4.10 2.7-3.8/3.0-4.0 cm LAIDs Index: 2.03 1.5-2.3 cm/m2 LV Mass: 172.05 67-162/88-224 g LV Mass Index: 85.18 43-95/49-115 g/m2 LVOT Diam: 2.10 3.0+(-)1.3 cm 2D Systolic Function EF 4C: 62.50 >55% EF 2C: 64.50 >55% EF BiP: 62.80 >55% Mitral Valve MV Pk E: 0.86 MV PK A: 1.20 MV Decel Time: 298.00 E/A: 0.70 E'Lateral: 7.18 E'Medial: 5.33 E/E' Med: 16.10 E/E' Lat: 12.00 PHT: 87.00 MVA PHT: 2.53 Decel [place]: 2.88 Aortic Valve AoV Pk Kannan: 2.19 AoV Mn Kannan: 1.46 AoV VTI: 0.41 AoV Pk Grad: 19.00 Aov Mn Grad: 10.00 MONICA Cont.VTI: 2.20 LVOT LVOT Pk Kannan: 1.25 LVOT Mn Kannan: 0.88 LVOT VTI: 0.26 LVOT Pk Grad: 6.00 LVOT Mn Grad: 4.00 LVOT Diam: 2.10 LVOT Area: 3.46 Diastolic Function MV Pk E: 0.86 MV Pk A: 1.20 E/A: 0.70 E'Medial: 5.33 E/E' Med: 16.10 E' Laterial: 7.18 E/E' Lat: 12.00 Right Ventricle TAPSE (mm): 26.50 TVS' Kannan: 17.90 Tricuspid Valve TR Pk Kannan: 1.48 TR Pk Grad: 9.00 RA Press: 8.00 RVSP: 17.00 Great Vessels Aorta Sinus of Valsalva: 3.60 2.0-3.5 cm Ao Asc: 3.20 2.1-3.4 cm Pulmonary Valve PV Pk Kannan: 1.02 Peak PV Grad: 4.00 Updated in Other Vendor System with Status of Final Raymon Wall MD electronically signed on 07/01/2024 3:00:05 PM with status of Final
== END ==
LOC: HO.CARD 07:47
PROVIDERS: PCP Nurse Practitioner Family; Visit Provider Nurse Practitioner Family
DX: I35.0 Nonrheumatic aortic (valve) stenosis (principal)
CPT/HCPCS: 93306

== ENCOUNTER → 2024-07-01 07:58 | Outpatient (BNV) | payer MEDICARE, SELFPAY | PROVIDERS: PCP Nurse Practitioner Family; Visit Provider Internal Medicine Cardiovascular Disease | DX: I35.0 Nonrheumatic aortic (valve) stenosis (principal) | CPT/HCPCS: 93306 ==

== ENCOUNTER 2024-07-20 07:32 | Outpatient (REF) | payer MEDICARE, SELFPAY ==
--- NOTE | ~2024-07-20 | XR_ITS ---
EXAMINATION: XR BILATERAL HIPS WITH AP PELVIS CLINICAL INFORMATION: M25.551 - Pain in right hip COMPARISON: 10/24/2021 TECHNIQUE: AP view of the pelvis and frog-leg lateral views of each hip were obtained. FINDINGS: There is symmetric mild bilateral osteoarthrosis of both hips. Normal femoral head contours with no evidence of AVN. Normal acetabular coverage. Soft tissues demonstrate diffuse vascular calcifications but are otherwise normal. XR/XR hips ERIN min 3V IMPRESSION: 1. 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 2. Vascular calcifications. Electronically signed by: Jeremy Interiano MD 07/21/2024 09:44 AM EDT
--- OUTSIDE RECORDS SUMMARY | 2024-07-20 07:37 | XMS_ITS | Clinical Summary ---
Author Organization [facility] Address [address] [place] [address] Care Team Providers Care Waistline Joiner Lockstitch Name Role Phone Unknown Primary Care Provider [phone] Allergies No known active allergies Social History [...] 1950 DTaP/Tdap/Td Vaccines (1 - Tdap) 1969 Colonoscopy 12/19/1995 Pneumococcal Vaccines 50+ (1 of 1 - PCV) 2000 Zoster (Shingles) Vaccine (1 of 2) 2000 RSV Vaccine 60 years and old er and Patients (1 - Risk 60-74 years 1-dose series) 2010 Influenza Vaccine 11/07/2023 COVID-19 Vaccine ( - 2023-2 5 season) 2023 Hepatitis B Vaccines Aged Out No long er eligible based on patient's age to complete this topic Care Teams Waistline Joiner Lockstitch Relationship Specialty Start Date End Date Unknown Unknow Provider Address PCP - General 07/03/23
--- OUTSIDE RECORDS SUMMARY | 2024-07-20 07:37 | XMS_ITS | Encounter Summary ---
Author Organization [facility] Address [address] [place] [address] Care Team Providers Care Swift Tender Name Role Phone Unknown Primary Care Provider [phone] Encounter Details Date Type Department Care Team (Late st Contact Info) Description 07/31/2023 Scanned Document [address] [place] [phone] Radiology, Scan Social History Tobacco Use [...] on filedocumented in this encounter Care Teams Swift Tender Relationship Specialty Start Date End Date Unknown Unknow Provider Address PCP - General 07/03/23 documented as of this encounter
[2024-07-20 10:50] LABS: MANUAL DIFF FLAG NO
[2024-07-20 10:52] LABS: Basophils Percent Auto 0.5 % (0-2); Eosinophils Absolute Auto 0.2 X10*3/uL (0.0-0.4); Eosinophils Percent Auto 2.5 % (0-4); Hematocrit 48.2 % (42.0-52.0); Hemoglobin 16.7 g/dl (14.0-18.0); Imm Gran Abs Auto 0.03 X10*3/uL (0.00-0.03); Imm Gran Pct Auto 0.4 % (0.0-0.4); Lymphocytes Absolute Auto 1.7 X10*3/uL (1.2-4.9); Lymphocytes Percent Auto 22.5 % (20-40); Mean Corpuscular HGB Conc 34.6 g/dl (31.0-36.0); Mean Corpuscular Volume 86.5 fL (80.0-98.0); Mean Platelet Volume 9.1 fL (9.4-12.4); Monocytes Absolute Auto 0.7 X10*3/uL (0.1-1.2); Monocytes Percent Auto 10.1 % (2-11); Neutrophils Absolute Auto 4.7 x10*3/uL (2.0-8.3); Platelet Count 238 X10*3/uL (160-400); Red Blood Count 5.57 X10*6/uL (4.60-5.80); White Blood Count 7.3 X10*3/uL (4.8-10.8)
[2024-07-20 10:54] LABS: Appearance Urine Clear; Color Urine Yellow; Glucose Urine UA Negative (Negative); Leukocyte Esterase Urine Trace (Negative); Nitrite Urine Negative (Negative); PH 6.5 (5.0-9.0); UMIC TRIGGER UACC YES; Urine Blood Negative (Negative); Urine Ketones Negative (Negative); Urine Protein 30 (1+) mg/dL (Neg-Trace)
[2024-07-20 11:01] LABS: Bacteria Urine None Seen (None Seen); Hyaline Casts Urine 0-2 /LPF (0-2); RBC Urine 0-2 /HPF (0-2); Squamous Epithelial Cell Urine 0-2 /HPF (0-2); WBC Urine 0-5 /HPF (0-5)
[2024-07-20 11:43] LABS: Microalbum/Creatinine Ratio Ur 84.4 ug/mg cr (<30)
[2024-07-20 11:43] LABS: Alanine Aminotransferase 20 U/L (0-40); Albumin Level 4.2 g/dL (3.5-5.0); Alkaline Phosphatase 80 U/L (39-117); Anion Gap 12 (12-20); Aspartate Amino Transferase 25 U/L (5-37); Bilirubin Total 0.9 mg/dL (0.0-1.0); Blood Urea Nitrogen 19 mg/dL (9-16); Calcium 10.1 mg/dL (8.4-10.2); Carbon Dioxide 28 mmol/L (22-29); Chloride 102 mmol/L (96-108); Cholesterol 132 mg/dL (<200); Estimated Glomerular Filt Rate > 60; Glucose Fasting 150 mg/dL (60-99); HDL Cholesterol 35 mg/dL (>40); LDL Cholesterol Calculated 69 mg/dL (<100); Potassium 4.1 mmol/L (3.3-5.1); Sodium 138 mmol/L (135-145); Total Protein 7.3 g/dL (6.5-8.0); Triglycerides 144 mg/dL (<150)
[2024-07-20 11:44] LABS: Prostate Specific Antigen Scr 2.17 ng/mL (<0.05-4.0)
[2024-07-20 11:47] LABS: TSH reflex Free T4 1.32 uIU/mL (0.32-4.0)
== END 2024-07-20 07:33 | disposition home or self-care (01) ==
LOC: HO.HMGCX 07:32
PROVIDERS: PCP Nurse Practitioner Family; Visit Provider Nurse Practitioner Family
DX: Z00.01 Encounter for general adult medical examination with abnormal findings (principal); E11.9 Type 2 diabetes mellitus without complications; Z12.5 Encounter for screening for malignant neoplasm of prostate; M25.551 Pain in right hip; M25.552 Pain in left hip
CPT/HCPCS: 36415; 73522; 80053; 80061; 81001; 82043; 82570; 84153; 84443; 85025

== ENCOUNTER → 2024-07-20 11:31 | Outpatient (BNV) | payer MEDICARE, SELFPAY | PROVIDERS: PCP Nurse Practitioner Family; Visit Provider Radiology Diagnostic Radiology | DX: M25.551 Pain in right hip (principal); I87.8 Other specified disorders of veins | CPT/HCPCS: 73522 ==

== ENCOUNTER 2024-08-10 06:59 | Outpatient (REF) | payer MEDICARE, SELFPAY ==
[2024-08-10 10:29] LABS: Appearance Urine Clear; Color Urine Yellow; Glucose Urine UA Negative (Negative); Leukocyte Esterase Urine Negative (Negative); Nitrite Urine Negative (Negative); Specific Gravity - Urine 1.015 (1.005-1.025); Urine Blood Negative (Negative); Urine Ketones Negative (Negative); Urine Protein Negative (Neg-Trace)
[2024-08-10 11:16] LABS: Creatinine Urine 111.19 mg/dL; Microalbum/Creatinine Ratio Ur 30.5 ug/mg cr (<30)
== END 2024-08-10 07:00 | disposition home or self-care (01) ==
LOC: HO.HMGCLDS 06:59
PROVIDERS: PCP Nurse Practitioner Family; Visit Provider Nurse Practitioner Family
DX: R80.9 Proteinuria, unspecified (principal)
CPT/HCPCS: 81003; 82043; 82570

== ENCOUNTER 2024-10-05 14:53 | Outpatient (REF) | payer MEDICARE, SELFPAY ==
--- NOTE | ~2024-10-05 | XR_ITS ---
EXAMINATION: XR SHOULDER, LEFT CLINICAL INFORMATION: M25.512 - Pain in left shoulder COMPARISON: None available. TECHNIQUE: AP, Grashey, Y view of the left shoulder. FINDINGS: The AC joint is intact. There is a corticated density just distal to the superior aspect of the distal clavicle. AC joint is otherwise unremarkable. Clinical data humeral joint is intact and not dislocated. Otherwise unremarkable exam. XR/XR shoulder LT min 2V IMPRESSION: There is a cortical density along the superior distal clavicle. This could be chronic, or could be related to periosteal avulsion due to superior acromioclavicular ligament injury. Correlate for acute signs and symptoms. Electronically signed by: Juan Zuluaga MD 10/05/2024 03:33 PM EDT
--- OUTSIDE RECORDS SUMMARY | 2024-10-05 15:20 | XMS_ITS | Encounter Summary ---
Author Organization [facility] Address [address] [place] [address] Care Team Providers Care Digital Business Analyst Name Role Phone Unknown Primary Care Provider [phone] Encounter Details Date Type Department Care Team (Late st Contact Info) Description 07/31/2023 Scanned Document [address] [place] [phone] Radiology, Scan Social History Tobacco Use Types Packs/Day Years Used Date Smoking Tobacco: Never Assessed Sex and Gender Information Value Date Recorded Sex Assigned at Male 07/03/2023 4:16 PM EDT Legal Sex Male 11:26 AM EDT Gender Identity Male 07/03/2023 4:16 PM EDT Sexual Orientation Heterosexual (straight) 07/02 4:16 PM EDT documented as of this encounter Plan of Treatment Not on file documented as of this encounter Procedures Procedure Name Priority Date/Time Associated Diagnosis Comments LAB RESULT 07/31/2023 documented in this encounter Results * LAB RESULT (07/31/2023) us Scan Radiology HX AMB PROCEDURES Final Result documented in this encounter Visit Diagnoses Not on filedocumented in this encounter Care Teams Digital Business Analyst Relationship Specialty Start Date End Date Unknown Unknow Provider Address PCP - General 07/03/23 documented as of this encounter
--- OUTSIDE RECORDS SUMMARY | 2024-10-05 15:21 | XMS_ITS ---
Author Name [facility] Organization Unknown History of Medication Use Medication Directions Dispensed Refills Start Date End Date Stat iohexol (OMNIPAQUE) 350 mg/mL injection 1 mL 1 mL, Intravenous, Once in imaging, contrast, Starting on Sat08/05/23 at 0913, For 1 dose, Radiology Appointment 08/05/2023 08/05/2023 completed Problems Problem Status Onset Date Problem Type Date of Resolution Source Atherosclerosis of coronary artery of [place] heart without angina pectoris, unspecified vessel or lesion type active EncounterDiagnosisAct CCT Encounters Encounter Type Encounter Reason Primary Diagnosis Location Date Ambulatory Atherosclerotic hear t disease of [place] coronary artery without angina pectoris Atherosclerotic heart disease of [place] coronary artery without angina pectoris [facility] 08/05/2023 Care Team Organization Name Specialty Phone Email Start Date End Da te [facility] 08/05/2023 06/24/2024 [facility] 07/04/2023
== END 2024-10-05 14:54 | disposition home or self-care (01) ==
LOC: HO.HMGCX 14:53
PROVIDERS: PCP Nurse Practitioner Family; Visit Provider Nurse Practitioner Family
DX: M25.512 Pain in left shoulder (principal)
CPT/HCPCS: 73030

== ENCOUNTER → 2024-10-05 14:57 | Outpatient (BNV) | payer MEDICARE, SELFPAY | PROVIDERS: PCP Nurse Practitioner Family; Visit Provider Radiology Diagnostic Radiology | DX: M25.512 Pain in left shoulder (principal) | CPT/HCPCS: 73030 ==

== ENCOUNTER 2024-12-15 08:52 | Outpatient (AMB) | payer MEDICARE, SELFPAY ==
[2024-12-15 09:05] VITALS: BP 122/80; PULSE 51; RESP 16; TEMP 36.8; O2SAT 96; BMI 30.1
--- NOTE | 2024-12-15 09:05 | MHC.PC.OV ---
Vital Signs 12/15/24 09:05 Height 5 ft 8 in Weight 198 lb BMI 30.1 BP 122/80 Blood Pressure Location Lt brachial Position Sitting Respiration 16 Pulse 51 Pulse Source Pulse Oximeter Temp 98.3 F Temp Source Oral Pulse Oximetry (%) 96 Oxygen Delivery Method Room Air Intake Visit Reasons: 6m follow up Senior Drafter Required: No Accompanied by: Self / Same As Patient Allergies No Known Allergies Allergy (Verified 12/15/24 09:14) Medication List - Last Reconciled 12/15/24 by Brian Love [facility] amlodipine-benazepril 10-20 mg 1 cap PO DAILY aspirin (Adult Low Dose Aspirin) 81 mg PO DAILY atorvastatin 40 mg PO QPM hydrochlorothiazide 25 mg PO DAILY labetalol 300 mg PO BID metformin ER 750 mg PO BID 90 days Tobacco use date assessed: 12/15/24 Fall risk assessment: No Falls in past year Last assessed Fall Risk: 12/15/24 Dental Screening Dental Screen Date: 12/15/24 Did you have a dental visit in the last 12 months?: Yes Did you have a dental problem in the last 6 months where you did not have access to dental care?: No Was dental information given to patient?: Patient has dentist HPI 6m follow up HPI Details Chief Complaint The patient presents with diabetes management concerns. History of Present Illness The patient is a 73-year-old male presenting with diabetes management concerns. His current Hemoglobin A1c is 6.9, showing improvement from previous levels. He denies experiencing chest pain or dyspnea. The patient reports ongoing left shoulder pain, which has been resistant to physical therapy. An x-ray was performed, and an MRI has been ordered due to difficulty lifting the left upper extremity. A corn is present on the plantar aspect of the left foot, specifically at the fifth metatarsophalangeal joint, causing tenderness and difficulty walking. The patient is advised to see a patent solicitor for potential removal. Social History Health Maintenance - Declined vaccinations Review of Systems - Cardiovascular: Denies chest pain - Respiratory: Denies dyspnea - Neurological: Denies neuropathies, polyuria, polydipsia Physical Exam General: Cooperative, healthy appearing, comfortable, no acute distress and well developed Orientation: Patient oriented x3 Limitations: Difficulty lifting left upper extremity Head: Normal to inspection Ears: Hearing grossly normal bilaterally Nose: Normal external nose present Face and sinus: Normal facial exam Eyes: Appearance normal, both eyes and all related structures Neck: Normal visual inspection and Yes full ROM Respiratory: Normal respiratory effort and able to speak in complete sentences. Clear to auscultation bilaterally Cardiovascular: Regular rate and rhythm. Normal S1 and S2. A systolic murmur noted on exam GI: Normal to inspection. Soft to palpation and nontender Skin: No rashes or lesions noted, except a corn to the plantar aspect of the left foot, fifth MTP joint region Neuro: Patient oriented x3 Extremities: Normal to inspection, except ongoing left shoulder pain and corn on left foot Results - Labs: Hemoglobin A1c 6.9 - Imaging: X-ray of left shoulder performed Plan 1. Diabetes Mellitus The patient's diabetes management shows improvement with a current Hemoglobin A1c of 6.9. Continued monitoring and management of blood glucose levels are advised. 2. Left Shoulder Pain The patient reports persistent left shoulder pain despite physical therapy. An MRI has been ordered to further evaluate the condition. 3. [place] On The Plantar Aspect Of The Left Foot The patient has a corn on the plantar aspect of the left foot, causing tenderness and difficulty walking. Referral to a patent solicitor for potential removal is recommended. 4. Systolic Murmur A systolic murmur was noted during the examination. Further evaluation may be necessary to determine the significance of this finding. Discussion Notes During the visit, we discussed the patient's diabetes management, noting the improvement in Hemoglobin A1c levels. We also addressed the persistent left shoulder pain and the plan to obtain an MRI for further evaluation. The corn on the patient's left foot was discussed, with a recommendation for podiatric consultation. The systolic murmur detected during the examination was noted, and further evaluation was considered. Patient Instructions - Continue monitoring blood glucose levels and follow diabetes management plan. - Attend the scheduled MRI for the left shoulder. - Consult with a patent solicitor regarding the corn on the left foot. [facility] Medical History No vaccination-pt refuse Aortic stenosis Mild mitral regurgitation Surgical History Hx of hand surgery Family History Father Heart disease Social History Housing: House Patient Tobacco Use Status: Former Tobacco user e-Cigarette/Vaping Use: Never Used Second Hand Smoke Exposure: No service: No Current occupational status: retired Cognitive needs: No Hearing needs: No Vision needs: No Questionnaire PHQ-9 Over the last 2 weeks, how often have you been bothered by any of the following problems? 1. Little interest or pleasure in doing things: not at all 2. Feeling down, depressed, or hopeless: not at all 3. Trouble falling or staying asleep, or sleeping too much: not at all 4. Feeling tired or having little energy: not at all 5. Poor appetite or overeating: not at all 6. Feeling bad about yourself - or that you are a failure or have let yourself or your family down: not at all 7. Trouble concentrating on things, such as reading the newspaper or watching television: not at all 8. Moving or speaking so slowly that other people could have noticed. Or the opposite - being so fidgety or restless that you have been moving around a lot more than usual: not at all 9. Thoughts that you would be better off or of hurting yourself in some way: not at all Total score: 0 Depression Screening Interpretation: Negative Depression Screening Done: Yes 17596 - PHQ-9 Billing: Yes Source: Developed by Drs. Morgan Anderson, Dedra Zelaya, Winston Aceves and colleagues, with an educational franck from [employer]. Thrive Questionnaire Date Thrive assessed: 06/11/24 I am a: Patient What is your living situation today?: I have a steady place to live Within the past 12 months, did the food you bought not last and you didn't have the money to get more?: Never true Within the past 12 months, did you worry whether your food would run out before you got money to buy more?: Never true Do you have trouble paying for medicines?: No Do you have trouble getting transportation to medical appointments?: No Do you have trouble paying your heating and electricity bill?: No Do you have trouble taking care of your child, family member or friend?: No Do you have trouble with day-to-day activities such as bathing, preparing meals, shopping, managing finances, etc.?: No Are you currently unemployed and looking for a job?: No Are you interested in more education?: No Please select the resources that you would like help with: Utilities Currently or been in a relationship where the following occur: No concerns reported THRIVE Score: 0 AUDIT C Alcohol Use Questionnaire (AUDIT-C) 2. How many drinks containing alcohol do you have on a typical day when you are drinking?: 1 or 2 3. How often do you have six or more drinks on one occasion?: Never Total Score: 0 Score Reviewed/Action Taken: Yes MARYA-7 AMB Questionnaire MARYA-7 Date MARYA - 7 assessed: 06/11/24 Feeling nervous, anxious, or on edge: 0 = Not at all Not being able to stop or control worryin = Not at all Worrying too much about different things: 0 = Not at all Trouble relaxin = Not at all Being so restless that it is hard to sit still: 0 = Not at all Becoming easily annoyed or irritable: 0 = Not at all Feeling afraid as if something awful might happen: 0 = Not at all Total MARYA-7 score (0-4 normal; 5-9 mild; 10-14 moderate; 15-21 severe): 0 Source: Developed by Drs. Morgan Anderson, Dedra Zelaya, Winston Aceves and colleagues, with an educational franck from [employer]. Physical exam (Primary Care) Vital Signs: Last Vital Signs Temp 98.3 F 12/15/24 09:05 Pulse 51 12/15/24 09:05 Resp 16 12/15/24 09:05 BP 122/80 12/15/24 09:05 Pulse Ox 96 12/15/24 09:05 Oxygen Delivery Method Room Air 12/15/24 09:05 BMI result Body Mass Index 30.1 Tobacco/Smoking Status: Tobacco use Status Tobacco use date assessed 12/15/24 12/15/24 09:12 Patient Tobacco Use Status Former Tobacco user 12/15/24 09:12 e-Cigarette/Vaping Use Never Used 12/15/24 09:12 PHQ-9: PHQ-9 Score PHQ-9: Total score 0 12/15/24 09:12 Depression Screening Interpretation: Negative Thrive Assessment: Date of Thrive Assessment Date Thrive assessed 06/11/24 12/15/24 09:12 Currently or been in a relationship where the following occur: No concerns reported Coding Level of Care Code Est Pt Level 4 (27092) Diagnoses Chronic left shoulder pain M25.512; G89.29 Diabetes E11.9 [place] of foot L84 Additional Codes PHQ-9 - 91239 - PHQ-9 Billing: Yes ([id number]) Assessment & Plan Assessment & Plan (1) Chronic left shoulder pain: Code(s): M25.512 - Pain in left shoulder; G89.29 - Other chronic pain Category: Medical (2) Diabetes: Code(s): E11.9 - Type 2 diabetes mellitus without complications Category: Medical (3) [place] of foot: Code(s): L84 - Corns and callosities Category: Medical Plan . Orders: Orders AMB Hemoglobin A1c Today Z13.9 - Encounter for screening, unspecified Complete Blood Count Auto Diff Today E11.9 - Type 2 diabetes mellitus without complications MR shoulder LT wo con Today G89.29 - Other chronic pain, M25.512 - Pain in left shoulder Comprehensive [place]. Panel Fast Today E11.9 - Type 2 diabetes mellitus without complications TSH reflex Free T4 Today E11.9 - Type 2 diabetes mellitus without complications UA CC w/rflx Micro + Cult Today E11.9 - Type 2 diabetes mellitus without complications Lipid Panel Today E11.9 - Type 2 diabetes mellitus without complications Referrals Podiatry Referral L84 - Corns and callosities
--- OUTSIDE RECORDS SUMMARY | 2024-12-15 10:03 | XMS_ITS | Encounter Summary ---
Author Organization [facility] Address [address] [place] [address] Care Team Providers Care Alarm Installation Technician Name Role Phone Unknown Primary Care Provider [phone] Encounter Details Date Type Department Care Team (Late st Contact Info) Description 07/31/2023 Scanned Document [address] [place] [id number] Radiology, Scan Social History Tobacco Use [...] on filedocumented in this encounter Care Teams Alarm Installation Technician Relationship Specialty Start Date End Date Unknown Unknow Provider Address PCP - General 07/03/23 documented as of this encounter
--- OUTSIDE RECORDS SUMMARY | 2024-12-15 10:03 | XMS_ITS | Clinical Summary ---
Author Organization [facility] Address [address] [place] [address] Care Team Providers Care Agricultural Economics Teacher Name Role Phone Unknown Primary Care Provider [phone] Allergies No known active allergies Social History [...] Health Maintenance Due Date Last Done Comments Advance Care Planning 1950 Hepatitis C Virus Screening 1950 DTaP/Tdap/Td Vaccines (1 - Tdap) 1969 Colonoscopy 12/19/1995 Pneumococcal Vaccines 50+ (1 of 1 - PCV) 2000 Zoster (Shingles) Vaccine (1 of 2) 2000 COVID-19 Vaccine ( - 2023-2 5 season) 2023 Influenza Vaccine 11/06/2024 RSV Vaccine 60 years and old er and Patients (1 - 1-dose 75+ series) 2025 Hepatitis B Vaccines Aged Out No long er eligible based on patient's age to complete this topic Insurance [place] [employer] MEDICARE OUT OF NETWORK Care Teams Agricultural Economics Teacher Relationship Specialty Start Date End Date Unknown Unknow Provider Address PCP - General 07/03/23
== END 2024-12-15 09:30 | disposition home or self-care (01) ==
LOC: HO.HMCC 08:52
PROVIDERS: PCP Nurse Practitioner Family; Visit Provider Nurse Practitioner Family
DX: M25.512 Pain in left shoulder (principal); G89.29 Other chronic pain; E11.9 Type 2 diabetes mellitus without complications; L84 Corns and callosities; Z13.9 Encounter for screening, unspecified

== ENCOUNTER → 2024-12-15 08:52 | Outpatient (BNVA) | payer MEDICARE, SELFPAY | PROVIDERS: PCP Nurse Practitioner Family; Visit Provider Nurse Practitioner Family | DX: E11.9 Type 2 diabetes mellitus without complications (principal); M25.512 Pain in left shoulder; L84 Corns and callosities; R01.1 Cardiac murmur, unspecified; G89.29 Other chronic pain | CPT/HCPCS: 83036; 96127; 99212 ==

== ENCOUNTER 2025-01-04 07:59 | Outpatient (AMB) | payer MEDICARE, SELFPAY ==
[2025-01-04 08:03] VITALS: BMI 30.4
--- NOTE | 2025-01-04 08:03 | A.OFFVIS_ITS ---
Vital Signs 01/04/25 08:03 Height 5 ft 8 in Weight 200 lb BMI 30.4 Intake Visit Reasons: corn left toe Intake Note: Marvel is a 74 year old male who presents today as a new patient for an evaluation of his corn and callosities of his left foot. [place] is located on the plantar aspect of the left foot and causes tenderness and difficulty walking. Patient reports the callosities and corn has been going on for a year and it has progressively worsen. He states he has not tried any treatment. Allergies No Known Allergies Allergy (Verified 01/04/25 08:04) HPI Comments Details: The patient is a 74-year-old male with a past medical history as seen below presenting with a painful thickened lesion to the plantar aspect of the left foot. He states the lesion, which feels like stepping on a pebble, restricts his ability to walk and perform daily activities. The pain is exacerbated by walking and alleviated at rest, with no associated drainage, pus, or bleeding. The patient has a history of Diabetes Mellitus, and states his recent HbA1c was 6.7%. He reports no numbness or tingling and wears sneakers regularly, although he needs a new pair due to wear. He denies any recent pedal injuries. He denies any other pedal concerns. He denies any current nausea, vomiting, fever, or chills. [facility] Medical History (Updated 01/04/25 @ 08:25 by Charmaine Hyde DPM) Nail dystrophy Pain in left foot Intractable plantar keratosis Other specified epidermal thickening No vaccination-pt refuse Aortic stenosis Mild mitral regurgitation Surgical History Hx of hand surgery Family History Father Heart disease Social History Housing: House Patient Tobacco Use Status: Former Tobacco user e-Cigarette/Vaping Use: Never Used Second Hand Smoke Exposure: No service: No Current occupational status: retired Cognitive needs: No Hearing needs: No Vision needs: No Review of Systems Const Details: - Musculoskeletal: Reports painful thickened lesion to the plantar aspect of the left foot, denies drainage, pus, or bleeding. - Neurological: Denies numbness or tingling. All systems reviewed & are unremarkable except as noted in HPI and below Physical Exam Vital Signs: BMI result Body Mass Index 30.4 Extrem Other: Bilateral lower extremity focused physical exam: Derm: Hyperkeratotic lesion noted to the plantar lateral aspect of the left foot in the area of the 5th metatarsal head. Toenails 1 through 5 bilaterally noted to be slightly thickened but length within normal limits. No open lesions abrasions or wounds noted. Skin supple and turgor within normal limits for age. No clinical signs of infection. No ecchymosis or erythema noted. No interdigital maceration noted. Vascular: DP/PT pulses palpable. Capillary refill time less than 3 seconds. Temperature gradient warm to warm. Pedal hair diminished. Varicosities noted. No edema noted. Neuro: Protective sensation is grossly intact to light touch and monofilament testing. MSK: No pain on palpation to the forefoot, hindfoot, and ankles bilaterally. Range of motion of the forefoot, hindfoot, and ankles within normal limits bilaterally. No crepitus noted. MMT 5/5. Nonantalgic unassisted gait noted. Mild hammertoe deformities noted bilaterally toes 2 through 5. No other gross abnormalities noted. Office Procedures AMB Debridement/Avulsion Podia Details: Debrided the hyperkeratotic lesion to the plantar lateral aspect of the left foot in the area of the 5th metatarsal head using a 15. Blade with no incidents. 88700-Eykzjnfakko of Callus (1) Procedure code (CPT) selection complete Diabetic Foot Exam G9226 - Diabetic Foot Exam Results Reviewed Results Reviewed: Laboratory Tests 12/15/24 09:14 Hgb A1c (Clinic) 6.9 H Assessment & Plan Assessment & Plan (1) Diabetes: Code(s): E11.9 - Type 2 diabetes mellitus without complications Category: Medical Qualifiers: Diabetes mellitus type: type 2 (2) Other specified epidermal thickening: Code(s): L85.8 - Other specified epidermal thickening Category: Medical (3) Intractable plantar keratosis: Code(s): L84 - Corns and callosities Category: Medical (4) Pain in left foot: Code(s): M79.672 - Pain in left foot Category: Medical (5) Nail dystrophy: Code(s): L60.3 - Nail dystrophy Category: Medical Plan Patient was informed and verbally consented to the use of an ambient scribe for clinic note documentation during this visit. Educated patient on affects of diabetes on the feet. I discussed with the patient the nature of the IPK/hyperkeratotic lesion and the procedure of d ebriding it to relieve pain. We talked about the importance of routine foot care due to his diabetes, including nail trimming every nine weeks. I also informed him about the option of diabetic shoes and insoles to prevent further foot issues if needed. 1. Intractable Porokeratosis, left foot - Debrided the IPK using a #15 blade. Patient may use an emollient to the area to reduce the rate of reoccurrence. - Patient is to monitor his feet daily and is to avoid barefoot waking. - Advised on the use of diabetic shoes and insoles if experiencing foot pain. - Patient is to continue wearing supportive shoe gear. Patient is to follow up in the office in 9 weeks for routine diabetic nail care. Orders: Orders AMB Debridement/Avulsion Podiatry Today L84 - Corns and callosities, L85.8 - Other specified epidermal thickening, M79.672 - Pain in left foot AMB Diabetic Foot Exam Today E11.9 - Type 2 diabetes mellitus without complications Coding Level of Care Code New Pt Level 3 (24739) Diagnoses Diabetes E11.9 Diabetes mellitus type: type 2 Other specified epidermal thickening L85.8 Intractable plantar keratosis L84 Pain in left foot M79.672 Nail dystrophy L60.3 CPT Codes Skin Debridement - CPT: 65093-Bjjbhuqxkxm of Callus (1) ([id number]) Diabetic Foot Exam - CPT: G9226 - Diabetic Foot Exam ([id number]) Time Spent (min) 40
--- OUTSIDE RECORDS SUMMARY | 2025-01-04 08:03 | XMS_ITS | Encounter Summary ---
Author Organization [facility] Address [address] [place] [address] Care Team Providers Care Detective And Intelligence Analyst Name Role Phone Unknown Primary Care Provider [phone] Encounter Details Date Type Department Care Team (Late st Contact Info) Description 07/31/2023 Scanned Document [address] [place] [phone] Radiology, Scan Social History Tobacco Use [...] on filedocumented in this encounter Care Teams Detective And Intelligence Analyst Relationship Specialty Start Date End Date Unknown Unknow Provider Address PCP - General 07/03/23 documented as of this encounter
--- OUTSIDE RECORDS SUMMARY | 2025-01-04 08:03 | XMS_ITS | Clinical Summary ---
Author Organization [facility] Address [address] [place] [address] Care Team Providers Care Extractor Puller Name Role Phone Unknown Primary Care Provider [...] Zoster (Shingles) Vaccine (1 of 2) 2000 Influenza Vaccine 11/06/2024 COVID-19 Vaccine ( - 2023-2 5 season) 2024 RSV Vaccine 60 years and old er and Patients (1 - 1-dose 75+ series) 2025 Hepatitis B Vaccines Aged Out No long er eligible based on patient's age to complete this topic Insurance [place] [employer] MEDICARE OUT OF NETWORK Care Teams Extractor Puller Relationship Specialty Start Date End Date Unknown Unknow Provider Address PCP - General 07/03/23
== END 2025-01-04 08:17 | disposition home or self-care (01) ==
LOC: HO.HPODS 08:00
PROVIDERS: PCP Nurse Practitioner Family; Visit Provider Student in an Organized Health Care Education/Training Program
DX: E11.9 Type 2 diabetes mellitus without complications (principal); L85.8 Other specified epidermal thickening; L84 Corns and callosities; M79.672 Pain in left foot; L60.3 Nail dystrophy
CPT/HCPCS: 11055; 99203; G9226

== ENCOUNTER → 2025-01-04 07:59 | Outpatient (BNVA) | payer MEDICARE, SELFPAY | PROVIDERS: PCP Nurse Practitioner Family; Visit Provider Student in an Organized Health Care Education/Training Program | DX: M79.672 Pain in left foot (principal); E11.9 Type 2 diabetes mellitus without complications; L85.8 Other specified epidermal thickening; L84 Corns and callosities; L60.3 Nail dystrophy | CPT/HCPCS: 11055; 99202 ==

== ENCOUNTER 2025-03-08 08:33 | Outpatient (AMB) | payer MEDICARE, SELFPAY ==
[2025-03-08 08:49] VITALS: BMI 30.4
--- NOTE | 2025-03-08 08:49 | MHC.OFFVIS ---
Vital Signs 03/08/25 08:49 Height 5 ft 8 in Weight 200 lb BMI 30.4 Intake Visit Reasons: diabetic routine nail care Intake Note: Marvel is a 74 year old male who is here today for a follow up for routine diabetic nail care. At last appointment patient had a callus debrided. Patient advised to continue to wear supportive shoe gear and avoid barefoot walking. Patient reports everything is going well and he has no concerns or questions at this time. Allergies No Known Allergies Allergy (Verified 03/08/25 08:50) HPI Comments Details: The patient is a 74 year old individual presenting for routine diabetic preventative foot care. The patient denies any new pedal injuries or pain in the nails or toes. The patient notes that toenails are naturally thick, with the second toenail being particularly affected. He states he experiences discomfort to the toes with the nails are too long are thick. Patient states he is unaware of his most recent blood glucose level. He denies any other pedal concerns. He denies any current nausea, vomiting, fever, or chills. [facility] Medical History (Updated 03/09/25 @ 18:10 by Charmaine Hyde DPM) Varicose veins of both lower extremities Nail disorder Tinea unguium Nail dystrophy Pain in left foot Intractable plantar keratosis Other specified epidermal thickening No vaccination-pt refuse Aortic stenosis Mild mitral regurgitation Surgical History Hx of hand surgery Family History Father Heart disease Social History Housing: House Patient Tobacco Use Status: Former Tobacco user e-Cigarette/Vaping Use: Never Used Second Hand Smoke Exposure: No service: No Current occupational status: retired Cognitive needs: No Hearing needs: No Vision needs: No Review of Systems Const Details: - Constitutional: Denies dizziness or nausea. - Musculoskeletal: Denies new foot injuries. - Integumentary/Nails: Reports discomfort to the toes when the nails are too long or thick. All systems reviewed & are unremarkable except as noted in HPI and below Physical Exam Vital Signs: BMI result Body Mass Index 30.4 Extrem Other: Bilateral lower extremity focused physical exam: Derm: Pre-Hyperkeratotic lesion noted to the plantar lateral aspect of the left foot in the area of the 5th metatarsal head. Toenails x10 noted to be slightly thickened, elongated, and dystrophic. No open lesions abrasions or wounds noted. Skin supple and turgor within normal limits for age. No clinical signs of infection. No ecchymosis or erythema noted. No interdigital maceration noted. Vascular: DP/PT pulses palpable. Capillary refill time less than 3 seconds. Temperature gradient warm to warm. Pedal hair diminished. Varicosities noted. No edema noted. Neuro: Protective sensation is grossly intact to light touch and monofilament testing. MSK: Discomfort noted to the toes due to increased thickness and length of the nails. No pain on palpation to the hindfoot, and ankles bilaterally. Range of motion of the forefoot, hindfoot, and ankles within normal limits bilaterally. No crepitus noted. MMT 5/5. Nonantalgic unassisted gait noted. Mild hammertoe deformities noted bilaterally toes 2 through 5. No other gross abnormalities noted. Class B and C findings noted. Office Procedures AMB Debridement/Avulsion Podia Details: Debrided toenails x10 using sterile nippers and Dremel without incidents. 06483-[place]ky[place]sk of Nail 6+ Procedure code (CPT) selection complete Results Reviewed Results Reviewed: Laboratory Tests 12/15/24 09:14 Hgb A1c (Clinic) 6.9 H ordered new labs to be performed prior to next visit. Assessment & Plan Assessment & Plan (1) Intractable plantar keratosis: Code(s): L84 - Corns and callosities Category: Medical (2) Nail dystrophy: Code(s): L60.3 - Nail dystrophy Category: Medical (3) Other specified epidermal thickening: Code(s): L85.8 - Other specified epidermal thickening Category: Medical (4) Diabetes: Code(s): E11.9 - Type 2 diabetes mellitus without complications Category: Medical Qualifiers: Diabetes mellitus type: type 2 (5) Atherosclerotic coronary vascular disease: Code(s): I25.10 - Atherosclerotic heart disease of [place] coronary artery without angina pectoris Category: Medical (6) Tinea unguium: Code(s): B35.1 - Tinea unguium Category: Medical (7) Nail disorder: Code(s): L60.9 - Nail disorder, unspecified Category: Medical (8) Varicose veins of both lower extremities: Code(s): I83.93 - Asymptomatic varicose veins of bilateral lower extremities Category: Medical Plan Patient was informed and verbally consented to the use of an ambient scribe for clinic note documentation during this visit. I discussed the patient's foot health, and the patient reported no new issues since the last visit. I explained that the thickening of the second toenail is common and often due to pressure from shoes. I placed an order for labs to be performed prior to next visit. - Placed an order for labs to be performed prior to next visit. - Debrided toenails x10. - Patient is to monitor his feet daily and is to avoid barefoot waking. - Advised on the use of diabetic shoes and insoles if experiencing foot pain. - Patient is to continue wearing supportive shoe gear. Patient is to follow up in the office in 9 weeks for routine diabetic nail care. Orders: Orders Comprehensive Met. Panel 03/08/25 E11.9 - Type 2 diabetes mellitus without complications, L60.3 - Nail dystrophy, L84 - Corns and callosities, L85.8 - Other specified epidermal thickening Complete Blood Count Auto Diff 03/08/25 E11.9 - Type 2 diabetes mellitus without complications, L60.3 - Nail dystrophy, L84 - Corns and callosities, L85.8 - Other specified epidermal thickening Hemoglobin A1c 03/08/25 E11.9 - Type 2 diabetes mellitus without complications, L60.3 - Nail dystrophy, L84 - Corns and callosities, L85.8 - Other specified epidermal thickening AMB Debridement/Avulsion Podiatry 03/08/25 B35.1 - Tinea unguium, E11.9 - Type 2 diabetes mellitus without complications, I25.10 - Atherosclerotic heart disease of [place] coronary artery without angina pectoris, L60.3 - Nail dystrophy, L60.9 - Nail disorder, unspecified Coding Level of Care Code Est Pt Level 3 (18147) Diagnoses Intractable plantar keratosis L84 Nail dystrophy L60.3 Other specified epidermal thickening L85.8 Diabetes E11.9 Diabetes mellitus type: type 2 Atherosclerotic coronary vascular disease I25.10 Tinea unguium B35.1 Nail disorder L60.9 Varicose veins of both lower extremities I83.93 CPT Codes Skin Debridement - CPT: 95342-Hjoxlkhzdhl of Nail 6+ ([id number]) Time Spent (min) 27 Comment 7 mins for procedure
--- OUTSIDE RECORDS SUMMARY | 2025-03-08 08:54 | XMS_ITS | Clinical Summary ---
Author Organization [facility] Address [address] [place] [address] Care Team Providers Care Kennel Worker Name Role Phone Unknown Primary Care Provider [...] - 2023-2 5 season) 2024 RSV Vaccine 50 years and old er and Patients (1 - 1-dose 75+ series) 2025 Hepatitis B Vaccines Aged Out No long er eligible based on patient's age to complete this topic Insurance [employer] MEDICARE OUT OF NETWORK Care Teams Kennel Worker Relationship Specialty Start Date End Date Unknown Unknow Provider Address PCP - General 07/03/23
--- OUTSIDE RECORDS SUMMARY | 2025-03-08 08:54 | XMS_ITS | Encounter Summary ---
Author Organization Formerly [facility] Address [address] [place] [address] Care Team Providers Care Iron Miner Blasting Name Role Phone Unknown Primary Care Provider [phone] Encounter Details Date Type Department Care Team (Late st Contact Info) Description 07/31/2023 Scanned Document [address] [place] [id number] Radiology, Scan Social History Tobacco Use [...] on filedocumented in this encounter Care Teams Iron Miner Blasting Relationship Specialty Start Date End Date Unknown Unknow Provider Address PCP - General 07/03/23 documented as of this encounter
== END 2025-03-08 09:03 | disposition home or self-care (01) ==
LOC: HO.HPODS 08:33
PROVIDERS: PCP Nurse Practitioner Family; Visit Provider Student in an Organized Health Care Education/Training Program
DX: L84 Corns and callosities (principal); E11.9 Type 2 diabetes mellitus without complications; L60.3 Nail dystrophy; L85.8 Other specified epidermal thickening; I25.10 Atherosclerotic heart disease of native coronary artery without angina pectoris; B35.1 Tinea unguium; L60.9 Nail disorder, unspecified; I83.93 Asymptomatic varicose veins of bilateral lower extremities
CPT/HCPCS: 11721; 99213

== ENCOUNTER → 2025-03-08 08:33 | Outpatient (BNVA) | payer MEDICARE, SELFPAY | PROVIDERS: PCP Nurse Practitioner Family; Visit Provider Student in an Organized Health Care Education/Training Program | DX: L84 Corns and callosities (principal); L60.3 Nail dystrophy; L85.8 Other specified epidermal thickening; E11.9 Type 2 diabetes mellitus without complications; I25.10 Atherosclerotic heart disease of native coronary artery without angina pectoris; B35.1 Tinea unguium; L60.9 Nail disorder, unspecified; I83.93 Asymptomatic varicose veins of bilateral lower extremities | CPT/HCPCS: 11721; 99212 ==